=== PATIENT | female | born 1960 | race Caucasian/White ===

== ENCOUNTER 2018-07-06 16:29 | Inpatient (IN) | END 2018-07-19 19:30 | DRG 56 ==

== ENCOUNTER 2019-04-08 03:59 | Inpatient (IN) | payer BC ==
[~2019-04-08] VITALS: Ht 154.9 cm; Wt 118.5 kg
[~2019-04-08 03:59] MED LIST: ACET500C5 PO; ALBU8.5H8 INH; ASPI325T30 PO; ATOR40TA68 PO; BACL20TA PO; DOCU-144 PO; ENOX40DI2 SC; FLUT12HF4 IH; GLIP5TAB13 PO; GLU5XL PO; HYDR-3670 PO; HYDR-3671 PO; HYDR4TAB PO; LABE200T25 PO; LOSA100T3 PO; LYR75 PO; NIFE60TA18 PO; NITR100C6 PO; NST15PW TOP; PANT40TA3 PO; PARO12.53 PO; POLY17PO6 PO; PREG50CA PO; PSYL1CAP5 PO; SITA1TBM7 PO; SOLI10TA2 PO; SPIR25TA PO; VALA500T PO
--- NOTE | 2019-04-08 04:45 | ERD ---
ER Documentation Chief Complaint Chief Complaint CHEST PAIN, RT ARM PAIN FROM FALL. HPI This is a 59-year-old woman here with multiple complaints including right lateral thigh pain due to iliotibial band syndrome, right wrist pain status post fall yesterday, and complaints of chronic body pain and chest pain. She is here requesting opioid analgesics but also wants to be admitted for physical rehabilitation services. She states she was admitted to [facility] physical rehabilitation a few months ago and it really helped her and because of her deteriorating condition at home she feels she will benefit from rehab services. She states she has been using hydromorphone at home without relief of her pain. She denies fevers or chills, no head or neck injury, no complaints of paresis or paresthesias. ROS All systems reviewed and are negative except as per history of present illness. Allergies Allergies: Coded Allergies: tramadol (Verified Allergy, Severe, SEVERE HEADACHE, 04/08/19) cephalexin (Verified Allergy, Intermediate, 04/08/19) erythromycin base (Verified Allergy, Intermediate, 04/08/19) PMhx/Soc Chronic neuropathic pain, right iliotibial band syndrome, chronic pain syndrome, history of CVA with left-sided paresis, hyperlipidemia, diabetes mellitus type 2, obstructive sleep apnea, depression, CAD with history of [place], asthma, hypertension, obesity, chronic headaches History of Surgery: Yes (see PT note) Anesthesia Reaction: No Hx Neurological Disorder: Yes (CVA) Hx Respiratory Disorders: Yes (asthma; obstructive sleep apnea) Hx Cardiac Disorders: Yes (HTN; CAD; Hyperlipdemia; ) Hx Psychiatric Problems: Yes (depression) Hx Miscellaneous Medical Probl: No Hx Alcohol Use: No Hx Substance Use: No Hx Tobacco Use: No FmHx Family History: No diabetes Physical Exam Vitals Vital Signs Date Temp Pulse Resp B/P (MAP) Pulse Ox O2 O2 Flow FiO2 Time Delivery Rate 04/08/19 83 17 158/71 95 Room Air 04:45 (100) 04/08/19 98.9 77 16 173/69 98 04:15 (103) Physical Exam Const: Well-developed well-nourished woman, Dehydrated, nontoxic in appearance, afebrile well-developed well-nourished woman, debilitated appearing Resp: Poor breath sounds bilaterally Cardio: Regular rate and rhythm, no murmurs Skin: No petechiae or rashes. There is soft tissue contusion and ecchymosis to the right proximal palm and dorsal right wrist but no bony tenderness or deformity, no lacerations no target lesions Ext: No cyanosis, 2+ pitting edema in the lower extremities bilaterally, calves are symmetrical, distal pulses equal bilateral Neur: Awake and alert x3, no focal deficits or facial asymmetry, pupils equal round reactive to light Psych: Normal Mood and Affect Result Diagram: 04/08/19 0531 Results 24 hrs Laboratory Tests Test 04/08/19 05:31 White Blood Count 13.5 10^3/ul Red Blood Count 3.85 10^6/ul Hemoglobin 10.5 g/dl Hematocrit 33.0 % Mean Corpuscular Volume 85.7 fl Mean Corpuscular Hemoglobin 27.3 pg Mean Corpuscular Hemoglobin Concent 31.8 g/dl Red Cell Distribution Width 13.0 % Platelet Count 375 10^3/UL Mean Platelet Volume 9.3 fl Immature Granulocytes % 0.400 % Neutrophils % 73.7 % Lymphocytes % 14.7 % Monocytes % 9.3 % Eosinophils % 1.5 % Basophils % 0.4 % Nucleated Red Blood Cells % 0.0 /100WBC Immature Granulocytes # 0.050 10^3/ul Neutrophils # 10.0 10^3/ul Lymphocytes # 2.0 10^3/ul Monocytes # 1.3 10^3/ul Eosinophils # 0.2 10^3/ul Basophils # 0.1 10^3/ul Nucleated Red Blood Cells # 0.0 10^3/ul Current Medications Medications Dose Sig/Vlad Start Time Status Last (Trade) Ordered Route PRN Stop Time Admin Dose Reason Admin Ketorolac 30 mg ONCE STAT 04/08/19 DC 04/08/19 Tromethamine IM 04:52 05:09 (Toradol) 04/08/19 04:53 Sodium 500 ml @ Q1H STAT 04/08/19 04/08/19 Chloride 500 mls/hr IV 05:10 05:37 04/08/19 06:09 Procedures/MDM IV line was established patient was placed on property assessment monitor rhythm strip revealed a sinus rhythm at about 70 bpm with upright P and T waves. Patient was afebrile X-ray right wrist 3V Interpreted by me: Scaphoid: Normal Bones: No fracture Joints: No dislocation Foreign body: None One AP view of the chest performed, read by me reveals no acute infiltrates, normal mediastinum, sharp costophrenic and cardiac borders, no air under the diaphragm. Otherwise unremarkable chest x-ray. EKG performed, read by me: 74 bpm, normal sinus rhythm, normal axis, no acute ST segment changes, narrow QRS complex, with good R-wave progression in precordial leads. I administered 500 cc normal saline IV and Toradol 30 mg IM x1 CBC was unremarkable, other labs are pending I will follow-up. I spoke to Dr. Franklin regarding the patient's presentation and symptomatology, he kindly agreed to admit the patient for continued pain control and possible rehab services. Departure Diagnosis: Primary Impression: Intractable pain Additional Impressions: Acute dehydration Wrist sprain Encounter type: initial encounter Laterality: right Qualified Codes: S 63.501A - Unspecified sprain of right wrist, initial encounter Contusion of soft tissue Condition: AKILA Gilbert MD Apr 08, 2019 04:45
[2019-04-08] MEDS ORDERED: KETOROLAC 30 MG INJ IM STA (04:52)
[2019-04-08] MEDS ORDERED: SOD CHLORIDE 0.9% 500 ML IV STA (05:10)
[2019-04-08 08:00] VITALS: BP 122/74; PULSE 78; RESP 18
[2019-04-08 08:30] VITALS: BP 130/61
[2019-04-08 10:06] VITALS: Ht 154.9 cm; Wt 118.5 kg
[2019-04-08] MEDS: HYDROmorphONE 1 MG/ML SYG IV PRN ×3 (10:53→20:34)
[2019-04-08] MEDS ORDERED: DOCUSATE SODIUM 100 MG CAP PO PRN (11:30)
[2019-04-08] MEDS ORDERED: NACL 0.9% 3 ML SYG IV SCH (11:30)
[2019-04-08] MEDS: SOD CHLORIDE 0.45% 1,000 ML IV SCH (12:30)
[2019-04-08 15:00] VITALS: BP 142/65; PULSE 73; RESP 17
[2019-04-08] MEDS ORDERED: DEXTROSE 50% 50 ML SYRINGE IV PRN ×2 (17:30)
[2019-04-08] MEDS ORDERED: GLUCOSE GEL 15 GRAM TUBE BUCCAL PRN (17:30)
[2019-04-08] MEDS ORDERED: GLUCOSE GEL 15 GRAM TUBE PO PRN ×2 (17:30)
[2019-04-08] MEDS ORDERED: GLUCAGON 1 MG INJ IM PRN (17:30)
[2019-04-08] MEDS: INSULIN ASPART [NOVOLOG] 3 ML PEN SC SCH ×2 (17:50→22:26)
[2019-04-08 19:35] VITALS: BP 147/65; PULSE 70; RESP 17
[2019-04-08] MEDS ORDERED: ACETAMINOPHEN 500 MG TAB PO PRN (20:30)
[2019-04-08] MEDS: DOCUSATE SODIUM 100 MG CAP PO SCH (20:52)
[2019-04-08] MEDS: NIFEdipine (XL) 60 MG TAB PO SCH (20:55)
[2019-04-08] MEDS ORDERED: glipiZIDE 5 MG TAB PO SCH (21:00)
[2019-04-08] MEDS ORDERED: PREGABALIN 75 MG CAP PO SCH (21:00)
[2019-04-08] MEDS: ATORVASTATIN 40 MG TAB PO SCH (21:23)
[2019-04-08] MEDS: BACLOFEN 10 MG TAB PO SCH (21:23)
[2019-04-08] MEDS: ALBUTEROL HFA 8 GM INHALER INH SCH (22:37)
[2019-04-08] MEDS: LABETALOL 200 MG TAB PO SCH (23:04)
[2019-04-08 23:31] VITALS: PULSE 72
[2019-04-09] MEDS: HYDROmorphONE 1 MG/ML SYG IV PRN ×5 (00:28→17:37)
[2019-04-09 01:33] VITALS: BP 139/60; RESP 18
[2019-04-09] MEDS: SOD CHLORIDE 0.45% 1,000 ML IV SCH ×2 (01:37→13:44)
[2019-04-09] MEDS: ACCU-CHEK XX SCH (01:48)
--- NOTE | 2019-04-09 02:22 | HP ---
DATE OF ADMISSION: 04/08/2019 HISTORY OF PRESENT ILLNESS: The patient is a 59-year-old female with a past medical history of previ ous CVA, history of chronic pain syndrome, history of right iliotibial band syndrome, chronic neuropa thic pain, history of left-sided paresis, hyperlipidemia, diabetes type 2, obstructive sleep apnea, d epression, coronary artery, history of asthma, hypertension, obesity, and chronic headaches. The pat vashti presents from home after having a fall yesterday, unable to manage the amount of pain that she i s having. The patient has noted since her previous admission to the acute rehab, a progressive decli ne in her physical function. Unclear if she had further neurologic disease. The patient complains o f pain similar to her iliotibial band syndrome. The patient is being managed by an outpatient pain m anagement doctor for her chronic pain. No recent changes to any of her medications. Known to have l eukocytosis. X-rays were negative. PAST MEDICAL HISTORY: Significant for above. MEDICATIONS FROM HOME: Include: 1. Albuterol. 2. Baclofen. 3. Lipitor. 4. Hydralazine. 5. Labetalol. 6. Losartan. 7. Nifedipine. 8. Aldactone. 9. Tylenol. 10. Dilaudid. 11. Lyrica. 12. Advair HFA. 13. Colace. 14. Protonix. 15. Psyllium. 16. Glipizide. 17. Janumet. 18. VESIcare. ALLERGIES: 1. KEFLEX. 2. ERYTHROMYCIN-BASED. 3. TRAMADOL. SOCIAL HISTORY: Does not smoke, drink or use IV drugs. FAMILY HISTORY: History of kidney disease. REVIEW OF SYSTEMS: A 14-point review of systems attempted and negative. PHYSICAL EXAMINATION: VITAL SIGNS: We see temperature 99, blood pressure 147/65. HEENT: Normocephalic, atraumatic. Pupils equal, round, and reactive to light. Oropharynx shows vangie st mucous membranes. NECK: Supple. HEART: Regular rate and rhythm. LUNGS: Clear to auscultation. ABDOMEN: Soft, nontender, and nondistended. Normoactive bowel sounds. EXTREMITIES: No clubbing, cyanosis, or edema. SKIN: Shows no rashes. BACK: Some point tenderness. HIP: Shows tenderness around the right thigh. IMPRESSION: 1. Acute exacerbation of the iliotibial band syndrome, status post fall; pain out of proportion, but the patient suffers from multiple different pain pathologies, previously well-managed by pain manage ment doctor when she was here in this hospital by Dr. Faye in the ARU. We will recommend physical therapy. Neurology consult. ARU evaluation, may need to go back to outpatient pain management if d oes not qualify. 2. Anemia. 3. Status post fall with contusion. Will x-ray hips. 4. Progressive decline in function. Rule out other CVA, will check a CT of the head. 5. Frequent falls, doubt syncopal. May benefit from more aggressive physical therapy. Look for und erlying cause. 6. History of asthma. Continue Advair and nebulizers p.r.n. 7. Diabetes. Continue regular medications. 8. Hypertension. Continue regular medications. Monitor labs. 9. History of previous cerebrovascular accident. Medication optimized. 10. Goals and values discussed extensively with the patient and wishes to be FULL CODE. Dictated By: RAQUEL SULTANA/[place] Conf#: [id number] DID#: [id number]
[2019-04-09 08:24] VITALS: BP 146/65; PULSE 69; RESP 16
[2019-04-09] MEDS: INSULIN ASPART [NOVOLOG] 3 ML PEN SC SCH ×4 (08:37→21:14)
[2019-04-09] MEDS: ENOXAPARIN 40 MG/0.4 ML SYG SC SCH (08:38)
[2019-04-09] MEDS: PANTOPRAZOLE (EC) 40 MG TAB PO SCH (08:40)
[2019-04-09] MEDS: SPIRONOLACTONE 25 MG TAB PO SCH (08:40)
[2019-04-09] MEDS: metFORMIN 500 MG TAB PO SCH ×2 (08:40→17:37)
[2019-04-09] MEDS: ASPIRIN 81 MG TAB PO SCH (08:41)
[2019-04-09] MEDS: LABETALOL 200 MG TAB PO SCH ×3 (08:41→21:04)
[2019-04-09] MEDS: BACLOFEN 10 MG TAB PO SCH ×3 (08:41→21:05)
[2019-04-09] MEDS: LINAGLIPTIN 5 MG TABLET PO SCH (08:42)
[2019-04-09] MEDS: DOCUSATE SODIUM 100 MG CAP PO SCH ×2 (08:42→21:05)
[2019-04-09] MEDS: LOSARTAN 50 MG TAB PO SCH (08:42)
[2019-04-09] MEDS: ALBUTEROL HFA 8 GM INHALER INH SCH ×3 (08:42→21:02)
[2019-04-09] MEDS: NIFEdipine (XL) 60 MG TAB PO SCH ×2 (08:43→21:04)
[2019-04-09] MEDS ORDERED: PREGABALIN 50 MG CAP PO SCH (09:00)
[2019-04-09] MEDS: SOLIFENACIN 5 MG TAB PO SCH (09:00)
[2019-04-09] MEDS ORDERED: PREGABALIN 25 MG CAP PO SCH (09:00)
--- NOTE | 2019-04-09 10:43 | CONSI ---
Assessment/Plan Assessment/Plan Assessment/Plan (Recall) 59 F c/ Hx of stroke and other comorbidities, who presents for evaluation of scattered pains s/p recurrent fall. Labs suggest a UTI, which could certainly predispose to an unsteady gait.. She notably has diffuse and chronic pain...requiring daily dilaudid, lyrica, etc. There is perhaps a superimposed acute post-traumatic component; this should wang with time. Regarding her chronic headache syndrome in particular, she may be a candidate for Topamax prophylaxis given its migrainous quality...but wants to consider the option more in advance of its initiation.. P: Consider the addition of an NSAID in the short term, as medically able UTI and other medical management per primary PT/OT as tolerated Consider Topamax in the future for headache prophylaxis, should patient agree Will follow Consultation Date/Type/Reason Admit Date/Time Apr 08, 2019 at 05:32 Type of Consult Neurology Reason for Consultation pain s/p fall Requesting Provider: RAQUEL DOWNING MD Date/Time of Note DATE: 04/09/19 TIME: 10:42 Hx of Present Illness The patient is a 59-year-old female with a past medical history of previous CVA, history of chronic pain syndrome, history of right iliotibial band syndrome, chronic neuropathic pain, history of left-sided paresis, hyperlipidemia, diabetes type 2, obstructive sleep apnea, depression, coronary artery, history of asthma, hypertension, obesity, and chronic headaches. The patient presents from home after having a fall yesterday, unable to manage the amount of pain that she is having. The patient has noted since her previous admission to the acute rehab, a progressive decline in her physical function. Unclear if she had further neurologic disease. The patient complains of pain similar to her iliotibial band syndrome. The patient is being managed by an outpatient pain management doctor for her chronic pain. No recent changes to any of her medications. Known to have leukocytosis. X-rays were negative. per HPI Objective Exam Vitals Vital Signs Date Temp Pulse Resp B/P (MAP) Pulse Ox O2 O2 Flow FiO2 Time Delivery Rate 04/09/19 98.7 69 16 146/65 93 08:24 (92) 04/08/19 30 23:31 04/08/19 Room Air 08:00 Intake and Output 04/08/19 04/08/19 04/09/19 1515:00 23:00 07:00 IntakeIntake Total 932 ml 1626 ml OutputOutput Total 500 ml BalanceBalance 432 ml 1626 ml Exam PE: Gen Appearance: No Apparent Distress HEENT: Normocephalic Cardiovascular: Regular rate Abdomen: Soft, obese Extremities: Dry NE: The patient was alert and oriented. Language was normal. Fund of knowledge was normal. Pupils were equal and reactive to light. There was no afferent pupillary defect. Visual estrada were normal. Funduscopic examination was limited. Extra-ocular movements were full. Ptosis was absent. There was no nystagmus. Facial sensation was normal. Face was symmetric with normal strength. Hearing was intact. Palate movements were normal. Neck strength was normal. There was normal tongue bulk and speed of movement. Tone was increased on the left. Muscle bulk was normal. I did not see fasciculations. Left arm and leg were moderate to severely weak. Vibration sensation was reduced distally. Temperature and pinprick sensation was normal. Rapid alternating movements were normal. There was no dysmetria. There was no intention tremor. Gait was deferred due to bedrest. Arm and leg reflexes were brisk on the left. Cruz's sign was absent. Plantar responses were flexor. Results Result Diagram: 04/09/1952504/09/19525 Results 24hrs Laboratory Tests Test 04/08/19 16:20 04/08/19 17:45 04/08/19 20:40 04/08/19 22:24 Urine Color YELLOW Urine Clarity CLOUDY A Urine pH 5.0 Urine Specific 1.011 [place] Urine Ketones NEGATIVE Urine Nitrite NEGATIVE Urine Bilirubin NEGATIVE Urine Urobilinogen NEGATIVE Urine Leukocyte 2+ H Esterase Urine Microscopic 1 RBC Urine Microscopic 65 H WBC Urine Squamous FEW Epithelial Cells Urine Bacteria MANY A Urine Mucus FEW A Urine Hemoglobin NEGATIVE Urine Glucose NEGATIVE Urine Total Protein NEGATIVE Bedside Glucose 204 198 190 Test 04/09/19 01:36 04/09/19 05:26 04/09/19 08:34 Bedside Glucose 144 160 White Blood Count 7.9 # Red Blood Count 3.83 L Hemoglobin 10.2 L Hematocrit 32.4 L Mean Corpuscular 84.6 Volume Mean Corpuscular 26.6 L Hemoglobin Mean Corpuscular 31.5 L Hemoglobin Concent Red Cell 13.1 Distribution Width Platelet Count 356 Mean Platelet Volume 9.8 Immature 0.300 Granulocytes % Neutrophils % 55.7 Lymphocytes % 31.0 Monocytes % 9.8 Eosinophils % 2.7 Basophils % 0.5 Nucleated Red Blood 0.0 Cells % Immature 0.020 Granulocytes # Neutrophils # 4.4 Lymphocytes # 2.4 Monocytes # 0.8 Eosinophils # 0.2 Basophils # 0.0 Nucleated Red Blood 0.0 Cells # Sodium Level 138 Potassium Level 4.4 Chloride Level 104 Carbon Dioxide Level 29 Anion Gap 5 Blood Urea Nitrogen 14 Creatinine 0.49 Est Glomerular > 60 Filtrat Rate mL/min Glucose Level 150 Hemoglobin A1c 10.8 H Calcium Level 9.2 Phosphorus Level 3.9 Magnesium Level 2.0 Total Bilirubin 0.9 Direct Bilirubin 0.00 Indirect Bilirubin 0.9 Aspartate Amino 23 Transf (AST/SGOT) Alanine 31 Aminotransferase (AL T/SGPT) Alkaline Phosphatase 103 Total Protein 6.4 Albumin 3.6 Globulin 2.80 Albumin/Globulin 1.28 Ratio Thyroid Stimulating 2.270 Hormone (TSH) Past Medical History reviewed Home Meds Reported Medications Sitagliptin Phos-Metformin Hcl (Janumet XR) 100-1,000 Mg Tbmp.24hr, 1 TAB PO WITH DINNER, #30 TAB 04/08/19 Psyllium Husk/Calcium Carb (Metamucil Plus Calcium Capsule) 1 Each Capsule, 2 EACH PO DAILY, CAP 04/08/19 Docusate Sodium* (Colace*) 100 Mg Capsule, 100 MG PO BID, #60 CAP 04/08/19 Aspirin* (Aspirin*) 325 Mg Tablet, 81 MG PO QID PRN for PAIN, TAB 04/08/19 Acetaminophen* (Tylophen*) 500 Mg Capsule, 650 MG PO Q6H PRN for PAIN LEVEL 1-3, TAB 04/08/19 Salmeterol Xinaf-Fluticasone* (Advair HFA*) 230/12 Aerosol Inhaler, 2 INH IH BID, #1 INHALER 04/08/19 Albuterol Sulfate* (Proair HFA*) 8.5 Gm Hfa.aer.ad, 2 PUFF INH TID, #1 INHALER 04/08/19 Hydromorphone Hcl* (Hydromorphone Hcl*) 4 Mg Tablet, 4 MG PO Q6 PRN for PAIN, TAB 04/08/19 Pregabalin* (Lyrica*) 75 Mg Capsule, 75 MG PO QHS, CAP 04/08/19 Pregabalin* (Lyrica*) 50 Mg Capsule, 50 MG PO DAILY, CAP 04/08/19 Baclofen* (Baclofen*) 20 Mg Tablet, 20 MG PO TID, TAB 04/08/19 Solifenacin* (Vesicare*) 10 Mg Tablet, 10 MG PO DAILY, TAB 04/08/19 Pantoprazole* (Protonix*) 40 Mg Tablet.dr, 40 MG PO DAILY, TAB 04/08/19 Atorvastatin* (Atorvastatin*) 40 Mg Tablet, 40 MG PO QHS, #30 TAB 04/08/19 Spironolactone* (Aldactone*) 25 Mg Tablet, 25 MG PO DAILY, #30 TAB 04/08/19 Labetalol Hcl* (Labetalol Hcl*) 200 Mg Tablet, 400 MG PO TID, TAB 04/08/19 Losartan Potassium* (Cozaar*) 100 Mg Tablet, 100 MG PO DAILY, #30 TAB 04/08/19 Hydralazine Hcl* (Hydralazine Hcl*) 10 Mg Tablet, 10 MG PO BID, #120 TAB 04/08/19 Nifedipine* (Nifedipine ER*) 60 Mg Tablet.sa, 60 MG PO BID, TAB.SA 04/08/19 Glipizide* (Glipizide*) 5 Mg Tablet, 25 MG PO BID, TAB 04/08/19 Medications Current Medications Hydromorphone HCl (Dilaudid) 4 mg Q4H PRN PO SEVERE PAIN LEVEL 7-10; Start 04/08/19 at 08:00 Hydromorphone HCl (Dilaudid) 1 mg Q4H PRN IV SEVERE PAIN LEVEL 7-10 Last administered on 04/09/19at 09:07; Admin Dose 1 MG; Start 04/08/19 at 08:00 Sodium Chloride 1,000 ml @ 75 mls/hr [id number] IV Last administered on 04/09/19at 01:37; Admin Dose 75 MLS/HR; Start 04/08/19 at 11:04 IV Flush (NS 3 ml) 3 ml PER PROTOCOL IV ; Start 04/08/19 at 11:30 Docusate Sodium (Colace) 100 mg Q12H PRN PO .CONSTIPATION; Start 04/08/19 at 11:30 Enoxaparin Sodium (Lovenox) 40 mg DAILY SC Last administered on 04/09/19at 08:38; Admin Dose 40 MG; Start 04/09/19 at 09:00 Diagnostic Test (Pha) (Accu-Chek) 1 ea 02 XX Last administered on 04/09/19at 01:48; Admin Dose 1 EA; Start 04/09/19 at 02:00 Insulin Aspart (Novolog Insulin Pen) NOVOLOG *MILD* ALGORITHM WITH MEALS BEDTIME SC Last administered on 04/09/19at 08:37; Admin Dose 1 UNIT; Start 04/08/19 at 18:00 Miscellaneous Information 1 ea NOTE XX ; Start 04/08/19 at 17:30 Glucose (Glutose) 15 gm Q15M PRN PO DECREASED GLUCOSE; Start 04/08/19 at 17:30 Glucose (Glutose) 22.5 gm Q15M PRN PO DECREASED GLUCOSE; Start 04/08/19 at 17:30 Dextrose (D50w Syringe) 25 ml Q15M PRN IV DECREASED GLUCOSE; Start 04/08/19 at 17:30 Dextrose (D50w Syringe) 50 ml Q15M PRN IV DECREASED GLUCOSE; Start 04/08/19 at 17:30 Glucagon (Glucagen) 1 mg Q15M PRN IM DECREASED GLUCOSE; Start 04/08/19 at 17:30 Glucose (Glutose) 15 gm Q15M PRN BUCCAL DECREASED GLUCOSE; Start 04/08/19 at 17:30 Acetaminophen (Tylenol Tab) 650 mg Q6H PRN PO PAIN LEVEL 1-3; Start 04/08/19 at 20:30 Albuterol (Ventolin Hfa) 2 puff TID INH Last administered on 04/09/19at 08:42; Admin Dose 2 PUFF; Start 04/08/19 at 21:00 Aspirin (Aspirin) 81 mg DAILY PO Last administered on 04/09/19at 08:41; Admin Do se 81 MG; Start 04/09/19 at 09:00 Atorvastatin Calcium (Lipitor) 40 mg QHS PO Last administered on 04/08/19at 21:23; Admin Dose 40 MG; Start 04/08/19 at 21:00 Baclofen (Lioresal) 20 mg TID PO Last administered on 04/09/19at 08:41; Admin Dose 20 MG; Start 04/08/19 at 21:00 Docusate Sodium (Colace) 100 mg BID PO Last administered on 04/09/19 08:42; Admin Dose 100 MG; Start 04/08/19 at 21:00 Hydralazine HCl (Apresoline) 10 mg BID PO Last administered on 04/09/19 08:41; Admin Dose 10 MG; Start 04/08/19 at 21:00 Labetalol HCl (Normodyne) 400 mg TID PO Last administered on 04/09/19 08:41; Admin Dose 400 MG; Start 04/08/19 at 21:00 Losartan Potassium (Cozaar) 100 mg DAILY PO Last administered on 04/09/19 08:42; Admin Dose 100 MG; Start 04/09/19 at 09:00 Nifedipine (Procardia Xl) 60 mg BID PO Last administered on 04/09/19 08:43; Admin Dose 60 MG; Start 04/08/19 at 21:00 Pantoprazole (Protonix Tab) 40 mg DAILY PO Last administered on 04/09/19 08:40; Admin Dose 40 MG; Start 04/09/19 at 09:00 Pregabalin (Lyrica) 75 mg QHS PO Last administered on 04/08/19 21:23; Admin Dose 75 MG; Start 04/08/19 at 21:00 Solifenacin (Vesicare) 10 mg DAILY PO ; Start 04/09/19 at 09:00 Spironolactone (Aldactone) 25 mg DAILY PO Last administered on 04/09/19 08:40; Admin Dose 25 MG; Start 04/09/19 at 09:00 Linagliptin (Tradjenta) 5 mg DAILY PO Last administered on 04/09/19 08:42; Admin Dose 5 MG; Start 04/09/19 at 09:00 Metformin HCl (Glucophage) 500 mg BID WITH MEALS PO Last administered on 04/09/19 08:40; Admin Dose 500 MG; Start 04/09/19 at 08:00 Pregabalin (Lyrica) 50 mg QAM PO Last administered on 04/09/19 08:42; Admin Dose 50 MG; Start 04/09/19 at 09:00 Allergies: Coded Allergies: tramadol (Verified Allergy, Severe, SEVERE HEADACHE, 04/08/19) cephalexin (Verified Allergy, Intermediate, 04/08/19) erythromycin base (Verified Allergy, Intermediate, 04/08/19) Past Surgical History Past Surgical Hx: other Social History Smoking Status: Former smoker LAURA VOGEL Apr 09, 2019 10:43
--- NOTE | 2019-04-09 12:13 | CONS ---
Consult Date/Type/Reason Admit Date/Time Apr 08, 2019 at 05:32 Initial Consult Date Requesting Provider: RAQUEL DOWNING MD Date/Time of Note DATE: 04/09/19 TIME: 11:58 Subjective 59-year-old female with a past medical history of previous CVA, history of chronic pain syndrome, history of right iliotibial band syndrome, chronic neuropathic pain, history of left-sided paresis, hyperlipidemia, diabetes type 2, obstructive sleep apnea, depression, coronary artery, history of asthma, hypertension, obesity, and chronic headaches. The patient presents from home after having a fall yesterday, unable to manage the amount of pain that she is having. The patient has noted since her previous admission to the acute rehab, a progressive decline in her physical function. Unclear if she had further neurologic disease. The patient complains of pain similar to her iliotibial ba nd syndrome. The patient is being managed by an outpatient pain management doctor for her chronic pain. No recent changes to any of her medications. Known to have leukocytosis. X-rays were negative. noted some encephalopathy possibly related to meds. notes anxiety. REVIEW OF SYSTEMS: A 14-point review of systems attempted and negative. PHYSICAL EXAMINATION: HEENT: Normocephalic, atraumatic. Pupils equal, round, and reactive to light. Oropharynx shows moist mucous membranes. NECK: Supple. HEART: Regular rate and rhythm. LUNGS: Clear to auscultation. ABDOMEN: Soft, nontender, and nondistended. Normoactive bowel sounds. EXTREMITIES: No clubbing, cyanosis, or edema. SKIN: Shows no rashes. BACK: Some point tenderness. HIP: Shows tenderness around the right thigh. Objective Vitals Vital Signs Date Temp Pulse Resp B/P (MAP) Pulse Ox O2 O2 Flow FiO2 Time Delivery Rate 04/09/19 98.7 69 16 146/65 93 08:24 (92) 04/08/19 30 23:31 04/08/19 Room Air 08:00 Intake and Output 04/08/19 04/08/19 04/09/19 1515:00 23:00 07:00 IntakeIntake Total 932 ml 1626 ml OutputOutput Total 500 ml BalanceBalance 432 ml 1626 ml Results/Medications Result Diagram: 04/09/1952504/09/19525 Results 24 hrs Laboratory Tests Test 04/08/19 16:20 04/08/19 17:45 04/08/19 20:40 04/08/19 22:24 Urine Color YELLOW Urine Clarity CLOUDY A Urine pH 5.0 Urine Specific 1.011 [place] Urine Ketones NEGATIVE Urine Nitrite NEGATIVE Urine Bilirubin NEGATIVE Urine Urobilinogen NEGATIVE Urine Leukocyte 2+ H Esterase Urine Microscopic 1 RBC Urine Microscopic 65 H WBC Urine Squamous FEW Epithelial Cells Urine Bacteria MANY A Urine Mucus FEW A Urine Hemoglobin NEGATIVE Urine Glucose NEGATIVE Urine Total Protein NEGATIVE Bedside Glucose 204 198 190 Test 04/09/19 01:36 04/09/19 05:26 04/09/19 08:34 Bedside Glucose 144 160 White Blood Count 7.9 # Red Blood Count 3.83 L Hemoglobin 10.2 L Hematocrit 32.4 L Mean Corpuscular 84.6 Volume Mean Corpuscular 26.6 L Hemoglobin Mean Corpuscular 31.5 L Hemoglobin Concent Red Cell 13.1 Distribution Width Platelet Count 356 Mean Platelet Volume 9.8 Immature 0.300 Granulocytes % Neutrophils % 55.7 Lymphocytes % 31.0 Monocytes % 9.8 Eosinophils % 2.7 Basophils % 0.5 Nucleated Red Blood 0.0 Cells % Immature 0.020 Granulocytes # Neutrophils # 4.4 Lymphocytes # 2.4 Monocytes # 0.8 Eosinophils # 0.2 Basophils # 0.0 Nucleated Red Blood 0.0 Cells # Sodium Level 138 Potassium Level 4.4 Chloride Level 104 Carbon Dioxide Level 29 Anion Gap 5 Blood Urea Nitrogen 14 Creatinine 0.49 Est Glomerular > 60 Filtrat Rate mL/min Glucose Level 150 Hemoglobin A1c 10.8 H Calcium Level 9.2 Phosphorus Level 3.9 Magnesium Level 2.0 Total Bilirubin 0.9 Direct Bilirubin 0.00 Indirect Bilirubin 0.9 Aspartate Amino 23 Transf (AST/SGOT) Alanine 31 Aminotransferase (AL T/SGPT) Alkaline Phosphatase 103 Total Protein 6.4 Albumin 3.6 Globulin 2.80 Albumin/Globulin 1.28 Ratio Thyroid Stimulating 2.270 Hormone (TSH) Home Meds Reported Medications Sitagliptin Phos-Metformin Hcl (Janumet XR) 100-1,000 Mg Tbmp.24hr, 1 TAB PO WITH DINNER, #30 TAB 04/08/19 Psyllium Husk/Calcium Carb (Metamucil Plus Calcium Capsule) 1 Each Capsule, 2 EACH PO DAILY, CAP 04/08/19 Docusate Sodium* (Colace*) 100 Mg Capsule, 100 MG PO BID, #60 CAP 04/08/19 Aspirin* (Aspirin*) 325 Mg Tablet, 81 MG PO QID PRN for PAIN, TAB 04/08/19 Acetaminophen* (Tylophen*) 500 Mg Capsule, 650 MG PO Q6H PRN for PAIN LEVEL 1-3, TAB 04/08/19 Salmeterol Xinaf-Fluticasone* (Advair HFA*) 230/12 Aerosol Inhaler, 2 INH IH BID, #1 INHALER 04/08/19 Albuterol Sulfate* (Proair HFA*) 8.5 Gm Hfa.aer.ad, 2 PUFF INH TID, #1 INHALER 04/08/19 Hydromorphone Hcl* (Hydromorphone Hcl*) 4 Mg Tablet, 4 MG PO Q6 PRN for PAIN, TAB 04/08/19 Pregabalin* (Lyrica*) 75 Mg Capsule, 75 MG PO QHS, CAP 04/08/19 Pregabalin* (Lyrica*) 50 Mg Capsule, 50 MG PO DAILY, CAP 04/08/19 Baclofen* (Baclofen*) 20 Mg Tablet, 20 MG PO TID, TAB 04/08/19 Solifenacin* (Vesicare*) 10 Mg Tablet, 10 MG PO DAILY, TAB 04/08/19 Pantoprazole* (Protonix*) 40 Mg Tablet.dr, 40 MG PO DAILY, TAB 04/08/19 Atorvastatin* (Atorvastatin*) 40 Mg Tablet, 40 MG PO QHS, #30 TAB 04/08/19 Spironolactone* (Aldactone*) 25 Mg Tablet, 25 MG PO DAILY, #30 TAB 04/08/19 Labetalol Hcl* (Labetalol Hcl*) 200 Mg Tablet, 400 MG PO TID, TAB 04/08/19 Losartan Potassium* (Cozaar*) 100 Mg Tablet, 100 MG PO DAILY, #30 TAB 04/08/19 Hydralazine Hcl* (Hydralazine Hcl*) 10 Mg Tablet, 10 MG PO BID, #120 TAB 04/08/19 Nifedipine* (Nifedipine ER*) 60 Mg Tablet.sa, 60 MG PO BID, TAB.SA 04/08/19 Glipizide* (Glipizide*) 5 Mg Tablet, 25 MG PO BID, TAB 04/08/19 Medications Current Medications Hydromorphone HCl (Dilaudid) 4 mg Q4H PRN PO SEVERE PAIN LEVEL 7-10; Start 04/08/19 at 08:00 Hydromorphone HCl (Dilaudid) 1 mg Q4H PRN IV SEVERE PAIN LEVEL 7-10 Last administered on 04/09/19at 09:07; Admin Dose 1 MG; Start 04/08/19 at 08:00 Sodium Chloride 1,000 ml @ 75 mls/hr [id number] IV Last administered on 04/09/19at 01:37; Admin Dose 75 MLS/HR; Start 04/08/19 at 11:04 IV Flush (NS 3 ml) 3 ml PER PROTOCOL IV ; Start 04/08/19 at 11:30 Docusate Sodium (Colace) 100 mg Q12H PRN PO .CONSTIPATION; Start 04/08/19 at 11:30 Enoxaparin Sodium (Lovenox) 40 mg DAILY SC Last administered on 04/09/19at 08:38; Admin Dose 40 MG; Start 04/09/19 at 09:00 Diagnostic Test (Pha) (Accu-Chek) 1 ea 02 XX Last administered on 04/09/19at 01:48; Admin Dose 1 EA; Start 04/09/19 at 02:00 Insulin Aspart (Novolog Insulin Pen) NOVOLOG *MILD* ALGORITHM WITH MEALS BEDTIME SC Last administered on 04/09/19at 08:37; Admin Dose 1 UNIT; Start 04/08/19 at 18:00 Miscellaneous Information 1 ea NOTE XX ; Start 04/08/19 at 17:30 Glucose (Glutose) 15 gm Q15M PRN PO DECREASED GLUCOSE; Start 04/08/19 at 17:30 Glucose (Glutose) 22.5 gm Q15M PRN PO DECREASED GLUCOSE; Start 04/08/19 at 17:30 Dextrose (D50w Syringe) 25 ml Q15M PRN IV DECREASED GLUCOSE; Start 04/08/19 at 17:30 Dextrose (D50w Syringe) 50 ml Q15M PRN IV DECREASED GLUCOSE; Start 04/08/19 at 17:30 Glucagon (Glucagen) 1 mg Q15M PRN IM DECREASED GLUCOSE; Start 04/08/19 at 17:30 Glucose (Glutose) 15 gm Q15M PRN BUCCAL DECREASED GLUCOSE; Start 04/08/19 at 17:30 Acetaminophen (Tylenol Tab) 650 mg Q6H PRN PO PAIN LEVEL 1-3; Start 04/08/19 at 20:30 Albuterol (Ventolin Hfa) 2 puff TID INH Last administered on 04/09/19 08:42; Admin Dose 2 PUFF; Start 04/08/19 at 21:00 Aspirin (Aspirin) 81 mg DAILY PO Last administered on 04/09/19 08:41; Admin Dose 81 MG; Start 04/09/19 at 09:00 Atorvastatin Calcium (Lipitor) 40 mg QHS PO Last administered on 04/08/19 21:23; Admin Dose 40 MG; Start 04/08/19 at 21:00 Baclofen (Lioresal) 20 mg TID PO Last administered on 04/09/19 08:41; Admin Dose 20 MG; Start 04/08/19 at 21:00 Docusate Sodium (Colace) 100 mg BID PO Last administered on 04/09/19 08:42; Admin Dose 100 MG; Start 04/08/19 at 21:00 Hydralazine HCl (Apresoline) 10 mg BID PO Last administered on 04/09/19 08:41; Admin Dose 10 MG; Start 04/08/19 at 21:00 Labetalol HCl (Normodyne) 400 mg TID PO Last administered on 04/09/19 08:41; Admin Dose 400 MG; Start 04/08/19 at 21:00 Losartan Potassium (Cozaar) 100 mg DAILY PO Last administered on 04/09/19 08:42; Admin Dose 100 MG; Start 04/09/19 at 09:00 Nifedipine (Procardia Xl) 60 mg BID PO Last administered on 04/09/19 08:43; Admin Dose 60 MG; Start 04/08/19 at 21:00 Pantoprazole (Protonix Tab) 40 mg DAILY PO Last administered on 04/09/19 08:40; Admin Dose 40 MG; Start 04/09/19 at 09:00 Pregabalin (Lyrica) 75 mg QHS PO Last administered on 04/08/19 21:23; Admin Dose 75 MG; Start 04/08/19 at 21:00 Solifenacin (Vesicare) 10 mg DAILY PO ; Start 04/09/19 at 09:00 Spironolactone (Aldactone) 25 mg DAILY PO Last administered on 04/09/19 08:40; Admin Dose 25 MG; Start 04/09/19 at 09:00 Linagliptin (Tradjenta) 5 mg DAILY PO Last administered on 04/09/19 08:42; Admin Dose 5 MG; Start 04/09/19 at 09:00 Metformin HCl (Glucophage) 500 mg BID WITH MEALS PO Last administered on 04/09/19 08:40; Admin Dose 500 MG; Start 04/09/19 at 08:00 Pregabalin (Lyrica) 50 mg QAM PO Last administered on 04/09/19 08:42; Admin Dose 50 MG; Start 04/09/19 at 09:00 Assessment/Plan Hospital Course (Demo Recall) 1. Acute exacerbation of the iliotibial band syndrome, status post fall; pain out of proportion, but the patient suffers from multiple different pain pathologies, previously well-managed by pain management doctor when she was here in this hospital by Dr. Faye in the ARU. We will recommend physical therapy. Neurology consult. ARU evaluation, may need to go back to outpatient pain management if does not qualify. 2. Anemia. 3. Status post fall with contusion. Will x-ray hips. 4. Progressive decline in function. Rule out other CVA, will check a CT of the head. neurology consultation 5. Frequent falls, doubt syncopal. May benefit from more aggressive physical therapy. Look for underlying cause. 6. History of asthma. Continue Advair and nebulizers p.r.n. 7. Diabetes. Continue regular medications. 8. Hypertension. Continue regular medications. Monitor labs. 9. History of previous cerebrovascular accident. Medication optimized. 10. encephalopathy- transient. may be toxic from meds. avoid sedatives. neuro consulted. fu ct head. RAQUEL DOWNING MD Apr 09, 2019 12:08
[2019-04-09 12:22] VITALS: BP 117/58; PULSE 67
[2019-04-09] MEDS ORDERED: FUROSEMIDE 40 MG INJ IV ONE (12:30)
[2019-04-09] MEDS: PREGABALIN 75 MG CAP PO SCH ×2 (12:42→21:05)
[2019-04-09] MEDS ORDERED: KETOROLAC 15 MG INJ IV STA (14:00)
[2019-04-09 14:22] VITALS: BP 120/56; PULSE 69; RESP 18
[2019-04-09 19:25] VITALS: BP 111/56; PULSE 63; RESP 16
[2019-04-09] MEDS: ATORVASTATIN 40 MG TAB PO SCH (21:04)
[2019-04-10] MEDS: HYDROmorphONE 1 MG/ML SYG IV PRN ×6 (00:47→23:59)
[2019-04-10 01:02] VITALS: BP 131/63; PULSE 67; RESP 16
[2019-04-10] MEDS: ACCU-CHEK XX SCH (02:00)
[2019-04-10 07:59] VITALS: BP 146/65; PULSE 70; RESP 18
[2019-04-10] MEDS: SOLIFENACIN 5 MG TAB PO SCH (08:12)
[2019-04-10] MEDS: LABETALOL 200 MG TAB PO SCH ×3 (08:13→21:11)
[2019-04-10] MEDS: metFORMIN 500 MG TAB PO SCH ×2 (08:13→17:57)
[2019-04-10] MEDS: PREGABALIN 75 MG CAP PO SCH ×3 (08:13→21:12)
[2019-04-10] MEDS: DOCUSATE SODIUM 100 MG CAP PO SCH ×2 (08:14→21:12)
[2019-04-10] MEDS: ASPIRIN 81 MG TAB PO SCH (08:14)
[2019-04-10] MEDS: SPIRONOLACTONE 25 MG TAB PO SCH (08:14)
[2019-04-10] MEDS: NIFEdipine (XL) 60 MG TAB PO SCH (08:14)
[2019-04-10] MEDS: LINAGLIPTIN 5 MG TABLET PO SCH (08:14)
[2019-04-10] MEDS: LOSARTAN 50 MG TAB PO SCH (08:14)
[2019-04-10] MEDS: BACLOFEN 10 MG TAB PO SCH ×4 (08:14→21:10)
[2019-04-10] MEDS: PANTOPRAZOLE (EC) 40 MG TAB PO SCH (08:15)
[2019-04-10] MEDS: ALBUTEROL HFA 8 GM INHALER INH SCH ×3 (08:15→21:10)
[2019-04-10] MEDS: INSULIN ASPART [NOVOLOG] 3 ML PEN SC SCH ×4 (08:16→21:00)
[2019-04-10] MEDS: ENOXAPARIN 40 MG/0.4 ML SYG SC SCH (08:17)
--- NOTE | 2019-04-10 09:57 | CONS ---
Consult Date/Type/Reason Admit Date/Time Apr 08, 2019 at 05:32 Initial Consult Date Requesting Provider: RAQUEL DOWNING MD Date/Time of Note DATE: 04/10/19 TIME: 09:54 Subjective 59-year-old female with a past medical history of previous CVA, history of chronic pain syndrome, history of right iliotibial band syndrome, chronic neuropathic pain, history of left-sided paresis, hyperlipidemia, diabetes type 2, obstructive sleep apnea, depression, coronary artery, history of asthma, hypertension, obesity, and chronic headaches. The patient presents from home after having a fall yesterday, unable to manage the amount of pain that she is having. The patient has noted since her previous admission to the acute rehab, a progressive decline in her physical function. Unclear if she had further neurologic disease. The patient complains of pain similar to her iliotibial ba nd syndrome. The patient is being managed by an outpatient pain management doctor for her chronic pain. No recent changes to any of her medications. Known to have leukocytosis. X-rays were negative. noted some encephalopathy possibly related to meds and poss uti notes anxiety. REVIEW OF SYSTEMS: A 14-point review of systems attempted and negative. PHYSICAL EXAMINATION: HEENT: Normocephalic, atraumatic. Pupils equal, round, and reactive to light. Oropharynx shows moist mucous membranes. NECK: Supple. HEART: Regular rate and rhythm. LUNGS: Clear to auscultation. ABDOMEN: Soft, nontender, and nondistended. Normoactive bowel sounds. EXTREMITIES: No clubbing, cyanosis, or edema. SKIN: Shows no rashes. BACK: Some point tenderness. HIP: Shows tenderness around the right thigh. Objective Vitals Vital Signs Date Temp Pulse Resp B/P (MAP) Pulse Ox O2 O2 Flow FiO2 Time Delivery Rate 04/10/19 98.5 70 18 146/65 95 07:59 (92) 04/08/19 30 23:31 04/08/19 Room Air 08:00 Intake and Output 04/09/19 04/09/19 04/10/19 1515:00 23:00 07:00 IntakeIntake Total 1878 ml 288 ml 358 ml BalanceBalance 1878 ml 288 ml 358 ml Results/Medications Result Diagram: 04/09/19 0504/09/19525 Results 24 hrs Laboratory Tests Test 04/09/19 12:24 04/09/19 17:37 04/09/19 21:00 04/10/19 02:33 Bedside Glucose 161 178 184 157 Test 04/10/19 08:10 Bedside Glucose 149 Home Meds Reported Medications Sitagliptin Phos-Metformin Hcl (Janumet XR) 100-1,000 Mg Tbmp.24hr, 1 TAB PO WITH DINNER, #30 TAB 04/08/19 Psyllium Husk/Calcium Carb (Metamucil Plus Calcium Capsule) 1 Each Capsule, 2 EACH PO DAILY, CAP 04/08/19 Docusate Sodium* (Colace*) 100 Mg Capsule, 100 MG PO BID, #60 CAP 04/08/19 Aspirin* (Aspirin*) 325 Mg Tablet, 81 MG PO QID PRN for PAIN, TAB 04/08/19 Acetaminophen* (Tylophen*) 500 Mg Capsule, 650 MG PO Q6H PRN for PAIN LEVEL 1-3, TAB 04/08/19 Salmeterol Xinaf-Fluticasone* (Advair HFA*) 230/12 Aerosol Inhaler, 2 INH IH BID, #1 INHALER 04/08/19 Albuterol Sulfate* (Proair HFA*) 8.5 Gm Hfa.aer.ad, 2 PUFF INH TID, #1 INHALER 04/08/19 Hydromorphone Hcl* (Hydromorphone Hcl*) 4 Mg Tablet, 4 MG PO Q6 PRN for PAIN, TAB 04/08/19 Pregabalin* (Lyrica*) 75 Mg Capsule, 75 MG PO QHS, CAP 04/08/19 Pregabalin* (Lyrica*) 50 Mg Capsule, 50 MG PO DAILY, CAP 04/08/19 Baclofen* (Baclofen*) 20 Mg Tablet, 20 MG PO TID, TAB 04/08/19 Solifenacin* (Vesicare*) 10 Mg Tablet, 10 MG PO DAILY, TAB 04/08/19 Pantoprazole* (Protonix*) 40 Mg Tablet.dr, 40 MG PO DAILY, TAB 04/08/19 Atorvastatin* (Atorvastatin*) 40 Mg Tablet, 40 MG PO QHS, #30 TAB 04/08/19 Spironolactone* (Aldactone*) 25 Mg Tablet, 25 MG PO DAILY, #30 TAB 04/08/19 Labetalol Hcl* (Labetalol Hcl*) 200 Mg Tablet, 400 MG PO TID, TAB 04/08/19 Losartan Potassium* (Cozaar*) 100 Mg Tablet, 100 MG PO DAILY, #30 TAB 04/08/19 Hydralazine Hcl* (Hydralazine Hcl*) 10 Mg Tablet, 10 MG PO BID, #120 TAB 04/08/19 Nifedipine* (Nifedipine ER*) 60 Mg Tablet.sa, 60 MG PO BID, TAB.SA 04/08/19 Glipizide* (Glipizide*) 5 Mg Tablet, 25 MG PO BID, TAB 04/08/19 Medications Current Medications Hydromorphone HCl (Dilaudid) 4 mg Q4H PRN PO SEVERE PAIN LEVEL 7-10; Start 04/08/19 at 08:00 Hydromorphone HCl (Dilaudid) 1 mg Q4H PRN IV SEVERE PAIN LEVEL 7-10 Last administered on 04/10/19at 09:45; Admin Dose 1 MG; Start 04/08/19 at 08:00 IV Flush (NS 3 ml) 3 ml PER PROTOCOL IV ; Start 04/08/19 at 11:30 Docusate Sodium (Colace) 100 mg Q12H PRN PO .CONSTIPATION; Start 04/08/19 at 11:30 Enoxaparin Sodium (Lovenox) 40 mg DAILY SC Last administered on 04/10/19at 08:17; Admin Dose 40 MG; Start 04/09/19 at 09:00 Diagnostic Test (Pha) (Accu-Chek) 1 ea 02 XX Last administered on 04/09/19at 01:48; Admin Dose 1 EA; Start 04/09/19 at 02:00 Insulin Aspart (Novolog Insulin Pen) NOVOLOG *MILD* ALGORITHM WITH MEALS BEDT [place] SC Last administered on 04/10/19at 08:16; Admin Dose 1 UNIT; Start 04/08/19 at 18:00 Miscellaneous Information 1 ea NOTE XX ; Start 04/08/19 at 17:30 Glucose (Glutose) 15 gm Q15M PRN PO DECREASED GLUCOSE; Start 04/08/19 at 17:30 Glucose (Glutose) 22.5 gm Q15M PRN PO DECREASED GLUCOSE; Start 04/08/19 at 17:30 Dextrose (D50w Syringe) 25 ml Q15M PRN IV DECREASED GLUCOSE; Start 04/08/19 at 17:30 Dextrose (D50w Syringe) 50 ml Q15M PRN IV DECREASED GLUCOSE; Start 04/08/19 at 17:30 Glucagon (Glucagen) 1 mg Q15M PRN IM DECREASED GLUCOSE; Start 04/08/19 at 17:30 Glucose (Glutose) 15 gm Q15M PRN BUCCAL DECREASED GLUCOSE; Start 04/08/19 at 17:30 Acetaminophen (Tylenol Tab) 650 mg Q6H PRN PO PAIN LEVEL 1-3 Last administered on 04/10/19 02:42; Admin Dose 650 MG; Start 04/08/19 at 20:30 Albuterol (Ventolin Hfa) 2 puff TID INH Last administered on 04/10/19 08:15; Admin Dose 2 PUFF; Start 04/08/19 at 21:00 Aspirin (Aspirin) 81 mg DAILY PO Last administered on 04/10/19 08:14; Admin Dose 81 MG; Start 04/09/19 at 09:00 Atorvastatin Calcium (Lipitor) 40 mg QHS PO Last administered on 04/09/19 21:04; Admin Dose 40 MG; Start 04/08/19 at 21:00 Baclofen (Lioresal) 20 mg TID PO Last administered on 04/10/19 08:14; Admin Dose 20 MG; Start 04/08/19 at 21:00 Docusate Sodium (Colace) 100 mg BID PO Last administered on 04/10/19 08:14; Admin Dose 100 MG; Start 04/08/19 at 21:00 Hydralazine HCl (Apresoline) 10 mg BID PO Last administered on 04/10/19 08:13; Admin Dose 10 MG; Start 04/08/19 at 21:00 Labetalol HCl (Normodyne) 400 mg TID PO Last administered on 04/10/19 08:13; Admin Dose 400 MG; Start 04/08/19 at 21:00 Losartan Potassium (Cozaar) 100 mg DAILY PO Last administered on 04/10/19 08:14; Admin Dose 100 MG; Start 04/09/19 at 09:00 Nifedipine (Procardia Xl) 60 mg BID PO Last administered on 04/10/19 08:14; Admin Dose 60 MG; Start 04/08/19 at 21:00 Pantoprazole (Protonix Tab) 40 mg DAILY PO Last administered on 04/10/19 08:15; Admin Dose 40 MG; Start 04/09/19 at 09:00 Solifenacin (Vesicare) 10 mg DAILY PO Last administered on 04/10/19 08:12; Admin Dose 10 MG; Start 04/09/19 at 09:00 Spironolactone (Aldactone) 25 mg DAILY PO Last administered on 04/10/19 08:14; Admin Dose 25 MG; Start 04/09/19 at 09:00 Linagliptin (Tradjenta) 5 mg DAILY PO Last administered on 04/10/19 08:14; Admin Dose 5 MG; Start 04/09/19 at 09:00 Metformin HCl (Glucophage) 500 mg BID WITH MEALS PO Last administered on 04/10/19 08:13; Admin Dose 500 MG; Start 04/09/19 at 08:00 Pregabalin (Lyrica) 75 mg TID PO Last administered on 04/10/19 08:13; Admin Dose 75 MG; Start 04/09/19 at 13:00 Assessment/Plan Hospital Course (Demo Recall) 1. Acute exacerbation of the iliotibial band syndrome, status post fall; pain out of proportion, but the patient suffers from multiple different pain pathologies, previously well-managed by pain management doctor when she was here in this hospital by Dr. Faye in the ARU. We will recommend physical therapy. Neurology consult. ARU evaluation, may need to go back to outpatient pain management if does not qualify. 2. Anemia. 3. Status post fall with contusion. Will x-ray hips. 4. Progressive decline in function. Rule out other CVA, will check a CT of the head. neurology consultation 5. Frequent falls, doubt syncopal. May benefit from more aggressive physical therapy. Look for underlying cause. 6. History of asthma. Continue Advair and nebulizers p.r.n. 7. Diabetes. Continue regular medications. 8. Hypertension. Continue regular medications. Monitor labs. 9. History of previous cerebrovascular accident. Medication optimized. 10. encephalopathy- transient. may be toxic from meds or uti. avoid sedatives. neuro consult appreciate. unchanged ct head.11. 11. uti- k pneumonia. pansensitive. start macrobid. FARAHMANDIAN,RAQUEL MD Apr 10, 2019 09:57
[2019-04-10] MEDS: ACETAMINOPHEN 325 MG TAB PO PRN (10:59)
[2019-04-10] MEDS: NITROFURANTOIN (SR) 100 MG CAP PO SCH ×2 (11:54→21:11)
[2019-04-10 11:56] VITALS: BP 117/56; PULSE 65
[2019-04-10] MEDS ORDERED: KETOROLAC 15 MG INJ IV ONE (13:30)
[2019-04-10 15:13] VITALS: BP 107/53; PULSE 61; RESP 18
[2019-04-10] MEDS ORDERED: glipiZIDE 5 MG TAB PO SCH (17:30)
[2019-04-10 20:33] VITALS: BP 139/64; PULSE 69; RESP 18
[2019-04-10] MEDS: ATORVASTATIN 40 MG TAB PO SCH (21:12)
[2019-04-10] MEDS: NIFEdipine (XL) 30 MG TAB PO SCH (21:12)
[2019-04-11 01:26] VITALS: BP 163/72; PULSE 68; RESP 18
[2019-04-11] MEDS: ACETAMINOPHEN 325 MG TAB PO PRN (01:41)
[2019-04-11 01:54] VITALS: BP 149/68; PULSE 70
[2019-04-11] MEDS: HYDROmorphONE 1 MG/ML SYG IV PRN ×4 (04:30→18:39)
[2019-04-11 07:31] VITALS: BP 158/69; PULSE 64; RESP 16
[2019-04-11] MEDS: INSULIN ASPART [NOVOLOG] 3 ML PEN SC SCH ×4 (08:00→20:52)
[2019-04-11] MEDS: POLYETHYLENE GLYCOL 17 GM PACKET PO SCH (08:50)
[2019-04-11] MEDS: metFORMIN 500 MG TAB PO SCH ×2 (08:50→18:10)
[2019-04-11] MEDS: BACLOFEN 10 MG TAB PO SCH ×3 (08:51→20:47)
[2019-04-11] MEDS: DOCUSATE SODIUM 100 MG CAP PO SCH ×2 (08:51→20:48)
[2019-04-11] MEDS: NITROFURANTOIN (SR) 100 MG CAP PO SCH ×2 (08:51→20:46)
[2019-04-11] MEDS: LABETALOL 200 MG TAB PO SCH ×3 (08:52→20:47)
[2019-04-11] MEDS: SOLIFENACIN 5 MG TAB PO SCH (08:52)
[2019-04-11] MEDS: PREGABALIN 75 MG CAP PO SCH ×3 (08:52→20:47)
[2019-04-11] MEDS: PANTOPRAZOLE (EC) 40 MG TAB PO SCH (08:53)
[2019-04-11] MEDS: LOSARTAN 50 MG TAB PO SCH (08:53)
[2019-04-11] MEDS: ASPIRIN 81 MG TAB PO SCH (08:53)
[2019-04-11] MEDS: SPIRONOLACTONE 25 MG TAB PO SCH (08:53)
[2019-04-11] MEDS: LINAGLIPTIN 5 MG TABLET PO SCH (08:53)
[2019-04-11] MEDS: NIFEdipine (XL) 30 MG TAB PO SCH ×2 (08:53→20:47)
[2019-04-11] MEDS: FUROSEMIDE 20 MG TAB PO SCH (08:54)
[2019-04-11] MEDS: ALBUTEROL HFA 8 GM INHALER INH SCH ×3 (08:54→20:45)
[2019-04-11] MEDS: ENOXAPARIN 40 MG/0.4 ML SYG SC SCH (08:57)
--- NOTE | 2019-04-11 10:20 | CONS ---
Consult Date/Type/Reason Admit Date/Time Apr 08, 2019 at 05:32 Initial Consult Date Requesting Provider: RAQUEL DOWNING MD Date/Time of Note DATE: 04/11/19 TIME: 10:16 Subjective 59-year-old female with a past medical history of previous CVA, history of chronic pain syndrome, history of right iliotibial band syndrome, chronic neuropathic pain, history of left-sided paresis, hyperlipidemia, diabetes type 2, obstructive sleep apnea, depression, coronary artery, history of asthma, hypertension, obesity, and chronic headaches. The patient presents from home after having a fall yesterday, unable to manage the amount of pain that she is having. The patient has noted since her previous admission to the acute rehab, a progressive decline in her physical function. Unclear if she had further neurologic disease. The patient complains of pain similar to her iliotibial ba nd syndrome. The patient is being managed by an outpatient pain management doctor for her chronic pain. No recent changes to any of her medications. Known to have leukocytosis. X-rays were negative. noted some encephalopathy possibly related to meds and poss uti notes anxiety. noted poss aphasia last night. REVIEW OF SYSTEMS: A 14-point review of systems attempted and negative. PHYSICAL EXAMINATION: HEENT: Normocephalic, atraumatic. Pupils equal, round, and reactive to light. Oropharynx shows moist mucous membranes. NECK: Supple. HEART: Regular rate and rhythm. LUNGS: Clear to auscultation. ABDOMEN: Soft, nontender, and nondistended. Normoactive bowel sounds. EXTREMITIES: No clubbing, cyanosis, or edema. SKIN: Shows no rashes. BACK: Some point tenderness. HIP: Shows tenderness around the right thigh. Objective Vitals Vital Signs Date Temp Pulse Resp B/P (MAP) Pulse Ox O2 O2 Flow FiO2 Time Delivery Rate 04/11/19 98.6 64 16 158/69 96 07:31 (98) 04/08/19 30 23:31 04/08/19 Room Air 08:00 Intake and Output 04/10/19 04/10/19 04/11/19 1515:00 23:00 07:00 IntakeIntake Total 680 ml 360 ml 958 ml OutputOutput Total 1 ml BalanceBalance 679 ml 360 ml 958 ml Results/Medications Result Diagram: 04/09/19 0526 04/09/19 0526 Results 24 hrs Laboratory Tests Test 04/10/19 12:44 04/10/19 17:53 04/10/19 21:03 04/11/19 08:28 Bedside Glucose 144 167 137 127 Home Meds Reported Medications Sitagliptin Phos-Metformin Hcl (Janumet XR) 100-1,000 Mg Tbmp.24hr, 1 TAB PO WITH DINNER, #30 TAB 04/08/19 Psyllium Husk/Calcium Carb (Metamucil Plus Calcium Capsule) 1 Each Capsule, 2 EACH PO DAILY, CAP 04/08/19 Docusate Sodium* (Colace*) 100 Mg Capsule, 100 MG PO BID, #60 CAP 04/08/19 Aspirin* (Aspirin*) 325 Mg Tablet, 81 MG PO QID PRN for PAIN, TAB 04/08/19 Acetaminophen* (Tylophen*) 500 Mg Capsule, 650 MG PO Q6H PRN for PAIN LEVEL 1-3, TAB 04/08/19 Salmeterol Xinaf-Fluticasone* (Advair HFA*) 230/12 Aerosol Inhaler, 2 INH IH BID, #1 INHALER 04/08/19 Albuterol Sulfate* (Proair HFA*) 8.5 Gm Hfa.aer.ad, 2 PUFF INH TID, #1 INHALER 04/08/19 Hydromorphone Hcl* (Hydromorphone Hcl*) 4 Mg Tablet, 4 MG PO Q6 PRN for PAIN, TAB 04/08/19 Pregabalin* (Lyrica*) 75 Mg Capsule, 75 MG PO QHS, CAP 04/08/19 Pregabalin* (Lyrica*) 50 Mg Capsule, 50 MG PO DAILY, CAP 04/08/19 Baclofen* (Baclofen*) 20 Mg Tablet, 20 MG PO TID, TAB 04/08/19 Solifenacin* (Vesicare*) 10 Mg Tablet, 10 MG PO DAILY, TAB 04/08/19 Pantoprazole* (Protonix*) 40 Mg Tablet.dr, 40 MG PO DAILY, TAB 04/08/19 Atorvastatin* (Atorvastatin*) 40 Mg Tablet, 40 MG PO QHS, #30 TAB 04/08/19 Spironolactone* (Aldactone*) 25 Mg Tablet, 25 MG PO DAILY, #30 TAB 04/08/19 Labetalol Hcl* (Labetalol Hcl*) 200 Mg Tablet, 400 MG PO TID, TAB 04/08/19 Losartan Potassium* (Cozaar*) 100 Mg Tablet, 100 MG PO DAILY, #30 TAB 04/08/19 Hydralazine Hcl* (Hydralazine Hcl*) 10 Mg Tablet, 10 MG PO BID, #120 TAB 04/08/19 Nifedipine* (Nifedipine ER*) 60 Mg Tablet.sa, 60 MG PO BID, TAB.SA 04/08/19 Glipizide* (Glipizide*) 5 Mg Tablet, 25 MG PO BID, TAB 04/08/19 Medications Current Medications Hydromorphone HCl (Dilaudid) 4 mg Q4H PRN PO SEVERE PAIN LEVEL 7-10; Start 04/08/19 at 08:00 Hydromorphone HCl (Dilaudid) 1 mg Q4H PRN IV SEVERE PAIN LEVEL 7-10 Last administered on 04/11/19at 08:58; Admin Dose 1 MG; Start 04/08/19 at 08:00 IV Flush (NS 3 ml) 3 ml PER PROTOCOL IV ; Start 04/08/19 at 11:30 Docusate Sodium (Colace) 100 mg Q12H PRN PO .CONSTIPATION; Start 04/08/19 at 11:30 Enoxaparin Sodium (Lovenox) 40 mg DAILY SC Last administered on 04/11/19at 08:57; Admin Dose 40 MG; Start 04/09/19 at 09:00 Diagnostic Test (Pha) (Accu-Chek) 1 ea 02 XX Last administered on 04/09/19at 01:48; Admin Dose 1 EA; Start 04/09/19 at 02:00 Insulin Aspart (Novolog Insulin Pen) NOVOLOG *MILD* ALGORITHM WITH MEALS BEDTIM E SC Last administered on 04/10/19at 17:56; Admin Dose 1 UNIT; Start 04/08/19 at 18:00 Miscellaneous Information 1 ea NOTE XX ; Start 04/08/19 at 17:30 Glucose (Glutose) 15 gm Q15M PRN PO DECREASED GLUCOSE; Start 04/08/19 at 17:30 Glucose (Glutose) 22.5 gm Q15M PRN PO DECREASED GLUCOSE; Start 04/08/19 at 17:30 Dextrose (D50w Syringe) 25 ml Q15M PRN IV DECREASED GLUCOSE; Start 04/08/19 at 17:30 Dextrose (D50w Syringe) 50 ml Q15M PRN IV DECREASED GLUCOSE; Start 04/08/19 at 17:30 Glucagon (Glucagen) 1 mg Q15M PRN IM DECREASED GLUCOSE; Start 04/08/19 at 17:30 Glucose (Glutose) 15 gm Q15M PRN BUCCAL DECREASED GLUCOSE; Start 04/08/19 at 17:30 Albuterol (Ventolin Hfa) 2 puff TID INH Last administered on 04/11/19 08:54; Admin Dose 2 PUFF; Start 04/08/19 at 21:00 Aspirin (Aspirin) 81 mg DAILY PO Last administered on 04/11/19 08:53; Admin Dose 81 MG; Start 04/09/19 at 09:00 Atorvastatin Calcium (Lipitor) 40 mg QHS PO Last administered on 04/10/19 21:12; Admin Dose 40 MG; Start 04/08/19 at 21:00 Baclofen (Lioresal) 20 mg TID PO Last administered on 04/11/19 08:51; Admin Dose 20 MG; Start 04/08/19 at 21:00 Docusate Sodium (Colace) 100 mg BID PO Last administered on 04/11/19 08:51; Admin Dose 100 MG; Start 04/08/19 at 21:00 Hydralazine HCl (Apresoline) 10 mg BID PO Last administered on 04/11/19 08:51; Admin Dose 10 MG; Start 04/08/19 at 21:00 Labetalol HCl (Normodyne) 400 mg TID PO Last administered on 04/11/19 08:52; Admin Dose 400 MG; Start 04/08/19 at 21:00 Losartan Potassium (Cozaar) 100 mg DAILY PO Last administered on 04/11/19 08:53; Admin Dose 100 MG; Start 04/09/19 at 09:00 Pantoprazole (Protonix Tab) 40 mg DAILY PO Last administered on 04/11/19 08:53; Admin Dose 40 MG; Start 04/09/19 at 09:00 Solifenacin (Vesicare) 10 mg DAILY PO Last administered on 04/11/19 08:52; Admin Dose 10 MG; Start 04/09/19 at 09:00 Spironolactone (Aldactone) 25 mg DAILY PO Last administered on 04/11/19 08:53; Admin Dose 25 MG; Start 04/09/19 at 09:00 Linagliptin (Tradjenta) 5 mg DAILY PO Last administered on 04/11/19 08:53; Admin Dose 5 MG; Start 04/09/19 at 09:00 Metformin HCl (Glucophage) 500 mg BID WITH MEALS PO Last administered on 04/11/19 08:50; Admin Dose 500 MG; Start 04/09/19 at 08:00 Pregabalin (Lyrica) 75 mg TID PO Last administered on 04/11/19 08:52; Admin Dose 75 MG; Start 04/09/19 at 13:00 Nitrofurantoin Macrocrystals (Macrobid) 100 mg BID PO Last administered on 04/11/19 08:51; Admin Dose 100 MG; Start 04/10/19 at 11:00 Nifedipine (Procardia Xl) 30 mg BID PO Last administered on 04/11/19 08:53; Admin Dose 30 MG; Start 04/10/19 at 21:00 Furosemide (Lasix) 20 mg DAILY PO Last administered on 04/11/19 08:54; Admin Dose 20 MG; Start 04/11/19 at 09:00 Acetaminophen (Tylenol Tab) 650 mg Q6H PRN PO MILD PAIN(1-3)OR ELEVATED TEMP Last administered on 04/11/19 01:41; Admin Dose 650 MG; Start 04/10/19 at 11:00 Polyethylene Glycol (Miralax) 17 gm DAILY PO Last administered on 04/11/19 08:50; Admin Dose 17 GM; Start 04/11/19 at 09:00 Assessment/Plan Hospital Course (Demo Recall) 1. Acute exacerbation of the iliotibial band syndrome, status post fall; pain out of proportion, but the patient suffers from multiple different pain pathologies, previously well-managed by pain management doctor when she was here in this hospital by Dr. Faye in the ARU. We will recommend physical therapy. Neurology consult. ARU evaluation, may need to go back to outpatient pain management if does not qualify. 2. Anemia. 3. Status post fall with contusion. Will x-ray hips. 4. Progressive decline in function. Rule out other CVA, will check a CT of the head. neurology consultation 5. Frequent falls, doubt syncopal. May benefit from more aggressive physical therapy. Look for underlying cause. 6. History of asthma. Continue Advair and nebulizers p.r.n. 7. Diabetes. Continue regular medications. 8. Hypertension. Continue regular medications. Monitor labs. 9. History of previous cerebrovascular accident. Medication optimized. 10. encephalopathy- transient. may be toxic from meds or uti. avoid sedatives. neuro consult appreciate. unchanged ct head.11. 11. uti- k pneumonia. pansensitive. started macrobid. 12. aphasia- transient. ro tia. neuro fu. get echo and carotid. RQAUEL DOWNING MD Apr 11, 2019 10:20
[2019-04-11 13:12] VITALS: BP 132/69; RESP 18
[2019-04-11 19:29] VITALS: BP 108/50; PULSE 66; RESP 18
[2019-04-11] MEDS: ATORVASTATIN 40 MG TAB PO SCH (20:46)
[2019-04-12] MEDS: HYDROmorphONE 1 MG/ML SYG IV PRN ×5 (00:28→18:32)
[2019-04-12 01:13] VITALS: BP 144/66; PULSE 65; RESP 18
[2019-04-12] MEDS: ACCU-CHEK XX SCH (02:00)
[2019-04-12 07:44] VITALS: BP 169/74; PULSE 65; RESP 18
--- NOTE | 2019-04-12 08:12 | RADRPT ---
Echocardiogram Report Patient Name: Cinthya GARCIAent ID: [id number] : 1960 (59y 2m)Study Date: 04/11/2019 11:56:15 AM Gender: FAccession #: [id number] Tech: EstefaniaSharon Dubon [facility] Location: 2550 Ref.Physician: RAQUEL DOWNING Height(Cm): BSA: Weight(Kg): Quality: AdequateOrder Physician: RAQUEL DOWNING Account #: Procedures: Echocardiographic Report: Transthoracic echocardiogram with complete 2D, M-Mode, and doppler examination. Indications: Transient Ischemic Attack. Measurements: 2D/M Mode Doppler Measurement Value Normal Range Measurement Value Normal Range LVIDd 2D 5.0 [ 3.8 - 5.2 ] cm AV Mean Ernst 1.4 [ 70.0 - 90.0 ] cm/sec LVIDs 2D 2.4 [ 2.2 - 3.5 ] cm AV Mean PG 9.0 [ 2.0 - 4.0 ] mmHg LVPWd 2D 1.0 [ 0.6 - 0.9 ] cm AV Peak Ernst 2.2 [ 100.0 - 170.0 ] cm/sec IVSd 2D 1.0 [ 0.6 - 0.9 ] cm AV Peak PG 19.0 [ 2.0 - 9.0 ] mmHg AoR Diam 2D 2.5 [ 2.3 - 3.1 ] cm AV VTI 52.3 cm EDV 2D 117.0 [ 46.0 - 106.0 ] ml LVOT Mean Ernst 1.1 [ 60.0 - 80.0 ] cm/sec ESV 2D 19.7 [ 14.0 - 42.0 ] ml LVOT Mean PG 6.0 [ 1.0 - 3.0 ] mmHg EF 2D 83.2 [ 54.0 - 74.0 ] percent LVOT Peak Ernst 1.5 [ 70.0 - 110.0 ] cm/sec LA Dimen 2D 3.5 [ 2.7 - 3.8 ] cm LVOT Peak PG 9.0 [ 2.0 - 6.0 ] mmHg LVOT VTI 34.7 [ 20.0 - 30.0 ] cm MV E Peak Ernst 1.4 [ 60.0 - 130.0 ] cm/sec MV A Peak Ernst 1.0 [ 100.0 - 120.0 ] cm/sec MV E/A 1.3 [ 0.8 - 1.5 ] ratio MV Decel Time 239 [ 104 - 258 ] msec Lat E` Ernst 0.1 [ 10.0 - 15.0 ] cm/sec Lateral E/E` 22.3 [ 1.0 - 2.0 ] ratio Med E` Ernst 0.0 cm/sec MV E/A 1.3 [ 0.8 - 1.5 ] ratio TR Peak Ernst 2.7 [ 100.0 - 280.0 ] cm/sec TR Peak PG 29.0 mmHg RVSP 39.0 [ 10.0 - 36.0 ] mmHg RA Pressure 10.0 mmHg Findings: Left Ventricle: Normal left ventricular systolic function. Normal left ventricular cavity size. Normal left ventricular wall thickness. Ejection fraction is visually estimated at 65-70 %. Tissue Doppler/Mitral Doppler indices are within normal limits. Right Ventricle: Normal right ventricular size. Normal right ventricular systolic function. Left Atrium: The left atrium is normal in size. Right Atrium: The right atrium is normal in size. Mitral Valve: Normal appearance of the mitral valve. Mild mitral annular calcification. Trace mitral regurgitation. Aortic Valve: Aortic valve Max velocity 2.16 m/sec. Max PG 19.00 mmHg. Mean PG 9.00 mmHg. Aortic sclerosis without significant stenosis. No aortic regurgitation. Tricuspid Valve: Normal appearance of the tricuspid valve. The estimated Peak RVSP is 39 mmHg. There is trace tricuspid regurgitation. Pulmonic Valve: Pulmonic valve not well visualized. Pericardium: Normal pericardium with no significant pericardial effusion. Aorta: Normal aortic root. IVC: Normal inferior vena cava with poor inspiratory collapse consistent with elevated right atrial pressures. Conclusions: Normal left ventricular systolic function. Normal left ventricular cavity size. Normal left ventricular wall thickness. Ejection fraction is visually estimated at 65-70 %. Tissue Doppler/Mitral Doppler indices are within normal limits. Normal appearance of the mitral valve. Mild mitral annular calcification. Trace mitral regurgitation. Aortic valve Max velocity 2.16 m/sec. Max PG 19.00 mmHg. Mean PG 9.00 mmHg. Aortic sclerosis without significant stenosis. No aortic regurgitation. Normal appearance of the tricuspid valve. The estimated Peak RVSP is 39 mmHg. There is trace tricuspid regurgitation. Electronically Signed By: Aniket Girard 2019-04-12 08:11:43 PDT
[2019-04-12] MEDS: INSULIN ASPART [NOVOLOG] 3 ML PEN SC SCH ×4 (08:50→20:39)
[2019-04-12] MEDS: ENOXAPARIN 40 MG/0.4 ML SYG SC SCH (08:51)
[2019-04-12] MEDS: POLYETHYLENE GLYCOL 17 GM PACKET PO SCH (08:53)
[2019-04-12] MEDS: NITROFURANTOIN (SR) 100 MG CAP PO SCH ×2 (08:53→20:30)
[2019-04-12] MEDS: DOCUSATE SODIUM 100 MG CAP PO SCH ×2 (08:53→20:29)
[2019-04-12] MEDS: PREGABALIN 75 MG CAP PO SCH ×3 (08:54→20:30)
[2019-04-12] MEDS: LABETALOL 200 MG TAB PO SCH ×3 (08:54→20:34)
[2019-04-12] MEDS: FUROSEMIDE 20 MG TAB PO SCH (08:54)
[2019-04-12] MEDS: SOLIFENACIN 5 MG TAB PO SCH (08:55)
[2019-04-12] MEDS: metFORMIN 500 MG TAB PO SCH ×2 (08:55→18:06)
[2019-04-12] MEDS: LINAGLIPTIN 5 MG TABLET PO SCH (08:55)
[2019-04-12] MEDS: ASPIRIN 81 MG TAB PO SCH (08:56)
[2019-04-12] MEDS: NIFEdipine (XL) 30 MG TAB PO SCH ×2 (08:56→20:34)
[2019-04-12] MEDS: LOSARTAN 50 MG TAB PO SCH (08:56)
[2019-04-12] MEDS: BACLOFEN 10 MG TAB PO SCH ×3 (08:56→20:28)
[2019-04-12] MEDS: SPIRONOLACTONE 25 MG TAB PO SCH (08:56)
[2019-04-12] MEDS: ALBUTEROL HFA 8 GM INHALER INH SCH ×3 (08:57→20:35)
[2019-04-12] MEDS: PANTOPRAZOLE (EC) 40 MG TAB PO SCH (08:58)
[2019-04-12] MEDS: ACETAMINOPHEN 325 MG TAB PO PRN ×2 (11:14→20:31)
--- NOTE | 2019-04-12 12:50 | CONS ---
Consult Date/Type/Reason Admit Date/Time Apr 08, 2019 at 05:32 Initial Consult Date Requesting Provider: RAQUEL DOWNING MD Date/Time of Note DATE: 04/12/19 TIME: 12:49 Subjective 59-year-old female with a past medical history of previous CVA, history of chronic pain syndrome, history of right iliotibial band syndrome, chronic neuropathic pain, history of left-sided paresis, hyperlipidemia, diabetes type 2, obstructive sleep apnea, depression, coronary artery, history of asthma, hypertension, obesity, and chronic headaches. The patient presents from home after having a fall yesterday, unable to manage the amount of pain that she is having. The patient has noted since her previous admission to the acute rehab, a progressive decline in her physical function. Unclear if she had further neurologic disease. The patient complains of pain similar to her iliotibial ba nd syndrome. The patient is being managed by an outpatient pain management doctor for her chronic pain. No recent changes to any of her medications. Known to have leukocytosis. X-rays were negative. noted some encephalopathy possibly related to meds and poss uti notes anxiety. noted poss aphasia had carotid showing 50-70% ica L lesion REVIEW OF SYSTEMS: A 14-point review of systems attempted and negative. PHYSICAL EXAMINATION: HEENT: Normocephalic, atraumatic. Pupils equal, round, and reactive to light. Oropharynx shows moist mucous membranes. NECK: Supple. HEART: Regular rate and rhythm. LUNGS: Clear to auscultation. ABDOMEN: Soft, nontender, and nondistended. Normoactive bowel sounds. EXTREMITIES: No clubbing, cyanosis, or edema. SKIN: Shows no rashes. BACK: Some point tenderness. HIP: Shows tenderness around the right thigh. Objective Vitals Vital Signs Date Temp Pulse Resp B/P (MAP) Pulse Ox O2 O2 Flow FiO2 Time Delivery Rate 04/12/19 98.5 65 18 169/74 96 07:44 (105) 04/11/19 Room Air 13:12 04/08/19 30 23:31 Intake and Output 04/11/19 04/11/19 04/12/19 1414:59 22:59 06:59 IntakeIntake Total 1400 ml 460 ml OutputOutput Total 1400 ml 200 ml BalanceBalance 0 ml 260 ml Results/Medications Result Diagram: 04/09/19 0526 04/09/19 0526 Results 24 hrs Laboratory Tests Test 04/11/19 13:05 04/11/19 18:12 04/11/19 20:45 04/12/19 02:47 Bedside Glucose 148 151 189 160 Test 04/12/19 08:46 Bedside Glucose 185 Home Meds Reported Medications Sitagliptin Phos-Metformin Hcl (Janumet XR) 100-1,000 Mg Tbmp.24hr, 1 TAB PO WITH DINNER, #30 TAB 04/08/19 Psyllium Husk/Calcium Carb (Metamucil Plus Calcium Capsule) 1 Each Capsule, 2 EACH PO DAILY, CAP 04/08/19 Docusate Sodium* (Colace*) 100 Mg Capsule, 100 MG PO BID, #60 CAP 04/08/19 Aspirin* (Aspirin*) 325 Mg Tablet, 81 MG PO QID PRN for PAIN, TAB 04/08/19 Acetaminophen* (Tylophen*) 500 Mg Capsule, 650 MG PO Q6H PRN for PAIN LEVEL 1-3, TAB 04/08/19 Salmeterol Xinaf-Fluticasone* (Advair HFA*) 230/12 Aerosol Inhaler, 2 INH IH BID, #1 INHALER 04/08/19 Albuterol Sulfate* (Proair HFA*) 8.5 Gm Hfa.aer.ad, 2 PUFF INH TID, #1 INHALER 04/08/19 Hydromorphone Hcl* (Hydromorphone Hcl*) 4 Mg Tablet, 4 MG PO Q6 PRN for PAIN, TAB 04/08/19 Pregabalin* (Lyrica*) 75 Mg Capsule, 75 MG PO QHS, CAP 04/08/19 Pregabalin* (Lyrica*) 50 Mg Capsule, 50 MG PO DAILY, CAP 04/08/19 Baclofen* (Baclofen*) 20 Mg Tablet, 20 MG PO TID, TAB 04/08/19 Solifenacin* (Vesicare*) 10 Mg Tablet, 10 MG PO DAILY, TAB 04/08/19 Pantoprazole* (Protonix*) 40 Mg Tablet.dr, 40 MG PO DAILY, TAB 04/08/19 Atorvastatin* (Atorvastatin*) 40 Mg Tablet, 40 MG PO QHS, #30 TAB 04/08/19 Spironolactone* (Aldactone*) 25 Mg Tablet, 25 MG PO DAILY, #30 TAB 04/08/19 Labetalol Hcl* (Labetalol Hcl*) 200 Mg Tablet, 400 MG PO TID, TAB 04/08/19 Losartan Potassium* (Cozaar*) 100 Mg Tablet, 100 MG PO DAILY, #30 TAB 04/08/19 Hydralazine Hcl* (Hydralazine Hcl*) 10 Mg Tablet, 10 MG PO BID, #120 TAB 04/08/19 Nifedipine* (Nifedipine ER*) 60 Mg Tablet.sa, 60 MG PO BID, TAB.SA 04/08/19 Glipizide* (Glipizide*) 5 Mg Tablet, 25 MG PO BID, TAB 04/08/19 Medications Current Medications Hydromorphone HCl (Dilaudid) 4 mg Q4H PRN PO SEVERE PAIN LEVEL 7-10; Start 04/08/19 at 08:00 Hydromorphone HCl (Dilaudid) 1 mg Q4H PRN IV SEVERE PAIN LEVEL 7-10 Last administered on 04/12/19at 08:40; Admin Dose 1 MG; Start 04/08/19 at 08:00 IV Flush (NS 3 ml) 3 ml PER PROTOCOL IV ; Start 04/08/19 at 11:30 Docusate Sodium (Colace) 100 mg Q12H PRN PO .CONSTIPATION; Start 04/08/19 at 11:30 Enoxaparin Sodium (Lovenox) 40 mg DAILY SC Last administered on 04/12/19at 08:51; Admin Dose 40 MG; Start 04/09/19 at 09:00 Diagnostic Test (Pha) (Accu-Chek) 1 ea 02 XX Last administered on 04/09/19at 01:48; Admin Dose 1 EA; Start 04/09/19 at 02:00 Insulin Aspart (Novolog Insulin Pen) NOVOLOG *MILD* ALGORITHM WITH MEALS BEDTIME SC Last administered on 04/12/19at 08:50; Admin Dose 2 UNIT; Start 04/08/19 at 18:00 Miscellaneous Information 1 ea NOTE XX ; Start 04/08/19 at 17:30 Glucose (Glutose) 15 gm Q15M PRN PO DECREASED GLUCOSE; Start 04/08/19 at 17:30 Glucose (Glutose) 22.5 gm Q15M PRN PO DECREASED GLUCOSE; Start 04/08/19 at 17:30 Dextrose (D50w Syringe) 25 ml Q15M PRN IV DECREASED GLUCOSE; Start 04/08/19 at 17:30 Dextrose (D50w Syringe) 50 ml Q15M PRN IV DECREASED GLUCOSE; Start 04/08/19 at 17:30 Glucagon (Glucagen) 1 mg Q15M PRN IM DECREASED GLUCOSE; Start 04/08/19 at 17:30 Glucose (Glutose) 15 gm Q15M PRN BUCCAL DECREASED GLUCOSE; Start 04/08/19 at 17:30 Albuterol (Ventolin Hfa) 2 puff TID INH Last administered on 04/12/19 08:57; Admin Dose 2 PUFF; Start 04/08/19 at 21:00 Aspirin (Aspirin) 81 mg DAILY PO Last administered on 04/12/19 08:56; Admin Dose 81 MG; Start 04/09/19 at 09:00 Atorvastatin Calcium (Lipitor) 40 mg QHS PO Last administered on 04/11/19 20:46; Admin Dose 40 MG; Start 04/08/19 at 21:00 Baclofen (Lioresal) 20 mg TID PO Last administered on 04/12/19 08:56; Admin Dose 20 MG; Start 04/08/19 at 21:00 Docusate Sodium (Colace) 100 mg BID PO Last administered on 04/12/19 08:53; Admin Dose 100 MG; Start 04/08/19 at 21:00 Hydralazine HCl (Apresoline) 10 mg BID PO Last administered on 04/12/19 08:55; Admin Dose 10 MG; Start 04/08/19 at 21:00 Labetalol HCl (Normodyne) 400 mg TID PO Last administered on 04/12/19 08:54; Admin Dose 400 MG; Start 04/08/19 at 21:00 Losartan Potassium (Cozaar) 100 mg DAILY PO Last administered on 04/12/19 08:56; Admin Dose 100 MG; Start 04/09/19 at 09:00 Pantoprazole (Protonix Tab) 40 mg DAILY PO Last administered on 04/12/19 08:58; Admin Dose 40 MG; Start 04/09/19 at 09:00 Solifenacin (Vesicare) 10 mg DAILY PO Last administered on 04/12/19 08:55; Adm in Dose 10 MG; Start 04/09/19 at 09:00 Spironolactone (Aldactone) 25 mg DAILY PO Last administered on 04/12/19 08:56; Admin Dose 25 MG; Start 04/09/19 at 09:00 Linagliptin (Tradjenta) 5 mg DAILY PO Last administered on 04/12/19 08:55; Admin Dose 5 MG; Start 04/09/19 at 09:00 Metformin HCl (Glucophage) 500 mg BID WITH MEALS PO Last administered on 04/12/19 08:55; Admin Dose 500 MG; Start 04/09/19 at 08:00 Pregabalin (Lyrica) 75 mg TID PO Last administered on 04/12/19 08:54; Admin Dose 75 MG; Start 04/09/19 at 13:00 Nitrofurantoin Macrocrystals (Macrobid) 100 mg BID PO Last administered on 04/12/19 08:53; Admin Dose 100 MG; Start 04/10/19 at 11:00 Nifedipine (Procardia Xl) 30 mg BID PO Last administered on 04/12/19 08:56; Admin Dose 30 MG; Start 04/10/19 at 21:00 Furosemide (Lasix) 20 mg DAILY PO Last administered on 04/12/19 08:54; Admin Dose 20 MG; Start 04/11/19 at 09:00 Acetaminophen (Tylenol Tab) 650 mg Q6H PRN PO MILD PAIN(1-3)OR ELEVATED TEMP Last administered on 04/12/19 11:14; Admin Dose 650 MG; Start 04/10/19 at 11:00 Polyethylene Glycol (Miralax) 17 gm DAILY PO Last administered on 04/12/19 08:53; Admin Dose 17 GM; Start 04/11/19 at 09:00 Assessment/Plan Hospital Course (Demo Recall) 1. Acute exacerbation of the iliotibial band syndrome, status post fall; pain out of proportion, but the patient suffers from multiple different pain pathologies, previously well-managed by pain management doctor when she was here in this hospital by Dr. Faye in the ARU. We will recommend physical therapy. Neurology consult. ARU evaluation, may need to go back to outpatient pain management if does not qualify. 2. Anemia. 3. Status post fall with contusion. Will x-ray hips. 4. Progressive decline in function. Rule out other CVA, will check a CT of the head. neurology consultation 5. Frequent falls, doubt syncopal. May benefit from more aggressive physical therapy. Look for underlying cause. 6. History of asthma. Continue Advair and nebulizers p.r.n. 7. Diabetes. Continue regular medications. 8. Hypertension. Continue regular medications. Monitor labs. 9. History of previous cerebrovascular accident. Medication optimized. 10. encephalopathy- transient. may be toxic from meds or uti. avoid se datives. neuro consult appreciate. unchanged ct head.11. 11. uti- k pneumonia. pansensitive. started macrobid. 12. aphasia- transient. ro tia. neuro fu. note L ICA lesion. will get vascular consult. RAQUEL DOWNING MD Apr 12, 2019 12:50
[2019-04-12 13:10] VITALS: BP 141/73; PULSE 66; RESP 18
[2019-04-12 20:06] VITALS: BP 149/67; PULSE 66; RESP 19
[2019-04-12] MEDS: ATORVASTATIN 40 MG TAB PO SCH (20:29)
[2019-04-13] MEDS: ACCU-CHEK XX SCH (02:00)
[2019-04-13] MEDS: HYDROmorphONE 1 MG/ML SYG IV PRN ×2 (02:00→06:05)
[2019-04-13] MEDS ORDERED: IOHEXOL 100 ML ONE (07:54)
[2019-04-13] MEDS ORDERED: SOD CHLORIDE 0.9% 100 ML ONE (07:54)
[2019-04-13] MEDS: metFORMIN 500 MG TAB PO SCH ×2 (07:59→17:44)
[2019-04-13] MEDS: ALBUTEROL HFA 8 GM INHALER INH SCH ×3 (08:10→20:27)
[2019-04-13] MEDS: NITROFURANTOIN (SR) 100 MG CAP PO SCH ×2 (08:11→20:24)
[2019-04-13] MEDS: DOCUSATE SODIUM 100 MG CAP PO SCH ×2 (08:11→20:24)
[2019-04-13] MEDS: NIFEdipine (XL) 30 MG TAB PO SCH ×2 (08:11→20:24)
[2019-04-13] MEDS: LOSARTAN 50 MG TAB PO SCH (08:12)
[2019-04-13] MEDS: ASPIRIN 81 MG TAB PO SCH (08:12)
[2019-04-13] MEDS: LABETALOL 200 MG TAB PO SCH ×3 (08:12→20:25)
[2019-04-13] MEDS: SOLIFENACIN 5 MG TAB PO SCH (08:12)
[2019-04-13] MEDS: SPIRONOLACTONE 25 MG TAB PO SCH (08:13)
[2019-04-13] MEDS: PANTOPRAZOLE (EC) 40 MG TAB PO SCH (08:13)
[2019-04-13] MEDS: BACLOFEN 10 MG TAB PO SCH ×3 (08:13→20:24)
[2019-04-13] MEDS: FUROSEMIDE 20 MG TAB PO SCH (08:15)
[2019-04-13] MEDS: LINAGLIPTIN 5 MG TABLET PO SCH (08:15)
[2019-04-13] MEDS: PREGABALIN 75 MG CAP PO SCH ×3 (08:15→20:23)
[2019-04-13 08:18] VITALS: BP 192/76; PULSE 65; RESP 20
[2019-04-13] MEDS: ENOXAPARIN 40 MG/0.4 ML SYG SC SCH (08:22)
[2019-04-13] MEDS: POLYETHYLENE GLYCOL 17 GM PACKET PO SCH (08:25)
[2019-04-13] MEDS: INSULIN ASPART [NOVOLOG] 3 ML PEN SC SCH ×4 (08:44→21:00)
[2019-04-13] MEDS: HYDROmorphONE 4 MG TAB PO PRN ×4 (10:11→23:33)
--- NOTE | 2019-04-13 11:42 | CONS ---
Consult Date/Type/Reason Admit Date/Time Apr 08, 2019 at 05:32 Initial Consult Date Requesting Provider: RAQUEL DOWNING MD Date/Time of Note DATE: 04/13/19 TIME: 11:37 Subjective 59-year-old female with a past medical history of previous CVA, history of chronic pain syndrome, history of right iliotibial band syndrome, chronic neuropathic pain, history of left-sided paresis, hyperlipidemia, diabetes type 2, obstructive sleep apnea, depression, coronary artery, history of asthma, hypertension, obesity, and chronic headaches. The patient presents from home after having a fall yesterday, unable to manage the amount of pain that she is having. The patient has noted since her previous admission to the acute rehab, a progressive decline in her physical function. Unclear if she had further neurologic disease. The patient complains of pain similar to her iliotibial ba nd syndrome. The patient is being managed by an outpatient pain management doctor for her chronic pain. No recent changes to any of her medications. Known to have leukocytosis. X-rays were negative. noted some encephalopathy possibly related to meds and poss uti notes anxiety. noted poss aphasia episodic. had carotid showing 50-70% ica L lesion. DW dr. ott. REVIEW OF SYSTEMS: A 14-point review of systems attempted and negative. PHYSICAL EXAMINATION: HEENT: Normocephalic, atraumatic. Pupils equal, round, and reactive to light. Oropharynx shows moist mucous membranes. NECK: Supple. HEART: Regular rate and rhythm. LUNGS: Clear to auscultation. ABDOMEN: Soft, nontender, and nondistended. Normoactive bowel sounds. EXTREMITIES: No clubbing, cyanosis, or edema. SKIN: Shows no rashes. BACK: Some point tenderness. HIP: Shows tenderness around the right thigh. Objective Vitals Vital Signs Date Temp Pulse Resp B/P (MAP) Pulse Ox O2 O2 Flow FiO2 Time Delivery Rate 04/13/19 97.9 65 20 192/76 92 08:18 (114) 04/12/19 Room Air 13:10 Intake and Output 04/12/19 04/12/19 04/13/19 1515:00 23:00 07:00 IntakeIntake Total 600 ml 240 ml OutputOutput Total 750 ml 300 ml BalanceBalance -150 ml -60 ml Results/Medications Result Diagram: 04/09/1904/09/19 0526 Results 24 hrs Laboratory Tests Test 04/12/19 12:53 04/12/19 18:02 04/12/19 20:27 04/13/19 02:29 Bedside Glucose 127 144 237 H 145 Test 04/13/19 08:29 Bedside Glucose 184 Home Meds Reported Medications Sitagliptin Phos-Metformin Hcl (Janumet XR) 100-1,000 Mg Tbmp.24hr, 1 TAB PO WITH DINNER, #30 TAB 04/08/19 Psyllium Husk/Calcium Carb (Metamucil Plus Calcium Capsule) 1 Each Capsule, 2 EACH PO DAILY, CAP 04/08/19 Docusate Sodium* (Colace*) 100 Mg Capsule, 100 MG PO BID, #60 CAP 04/08/19 Aspirin* (Aspirin*) 325 Mg Tablet, 81 MG PO QID PRN for PAIN, TAB 04/08/19 Acetaminophen* (Tylophen*) 500 Mg Capsule, 650 MG PO Q6H PRN for PAIN LEVEL 1-3, TAB 04/08/19 Salmeterol Xinaf-Fluticasone* (Advair HFA*) 230/12 Aerosol Inhaler, 2 INH IH BID, #1 INHALER 04/08/19 Albuterol Sulfate* (Proair HFA*) 8.5 Gm Hfa.aer.ad, 2 PUFF INH TID, #1 INHALER 04/08/19 Hydromorphone Hcl* (Hydromorphone Hcl*) 4 Mg Tablet, 4 MG PO Q6 PRN for PAIN, TAB 04/08/19 Pregabalin* (Lyrica*) 75 Mg Capsule, 75 MG PO QHS, CAP 04/08/19 Pregabalin* (Lyrica*) 50 Mg Capsule, 50 MG PO DAILY, CAP 04/08/19 Baclofen* (Baclofen*) 20 Mg Tablet, 20 MG PO TID, TAB 04/08/19 Solifenacin* (Vesicare*) 10 Mg Tablet, 10 MG PO DAILY, TAB 04/08/19 Pantoprazole* (Protonix*) 40 Mg Tablet.dr, 40 MG PO DAILY, TAB 04/08/19 Atorvastatin* (Atorvastatin*) 40 Mg Tablet, 40 MG PO QHS, #30 TAB 04/08/19 Spironolactone* (Aldactone*) 25 Mg Tablet, 25 MG PO DAILY, #30 TAB 04/08/19 Labetalol Hcl* (Labetalol Hcl*) 200 Mg Tablet, 400 MG PO TID, TAB 04/08/19 Losartan Potassium* (Cozaar*) 100 Mg Tablet, 100 MG PO DAILY, #30 TAB 04/08/19 Hydralazine Hcl* (Hydralazine Hcl*) 10 Mg Tablet, 10 MG PO BID, #120 TAB 04/08/19 Nifedipine* (Nifedipine ER*) 60 Mg Tablet.sa, 60 MG PO BID, TAB.SA 04/08/19 Glipizide* (Glipizide*) 5 Mg Tablet, 25 MG PO BID, TAB 04/08/19 Medications Current Medications Hydromorphone HCl (Dilaudid) 4 mg Q4H PRN PO SEVERE PAIN LEVEL 7-10 Last administered on 04/13/19at 10:11; Admin Dose 4 MG; Start 04/08/19 at 08:00 Hydromorphone HCl (Dilaudid) 1 mg Q4H PRN IV SEVERE PAIN LEVEL 7-10 Last administered on 04/13/19at 06:05; Admin Dose 1 MG; Start 04/08/19 at 08:00 IV Flush (NS 3 ml) 3 ml PER PROTOCOL IV ; Start 04/08/19 at 11:30 Docusate Sodium (Colace) 100 mg Q12H PRN PO .CONSTIPATION; Start 04/08/19 at 1 1:30 Enoxaparin Sodium (Lovenox) 40 mg DAILY SC Last administered on 04/13/19at 08:22; Admin Dose 40 MG; Start 04/09/19 at 09:00 Diagnostic Test (Pha) (Accu-Chek) 1 ea 02 XX Last administered on 04/09/19at 01:48; Admin Dose 1 EA; Start 04/09/19 at 02:00 Insulin Aspart (Novolog Insulin Pen) NOVOLOG *MILD* ALGORITHM WITH MEALS BEDTIME SC Last administered on 04/13/19at 08:44; Admin Dose 2 UNIT; Start 04/08/19 at 18:00 Miscellaneous Information 1 ea NOTE XX ; Start 04/08/19 at 17:30 Glucose (Glutose) 15 gm Q15M PRN PO DECREASED GLUCOSE; Start 04/08/19 at 17:30 Glucose (Glutose) 22.5 gm Q15M PRN PO DECREASED GLUCOSE; Start 04/08/19 at 17:30 Dextrose (D50w Syringe) 25 ml Q15M PRN IV DECREASED GLUCOSE; Start 04/08/19 at 17:30 Dextrose (D50w Syringe) 50 ml Q15M PRN IV DECREASED GLUCOSE; Start 04/08/19 at 17:30 Glucagon (Glucagen) 1 mg Q15M PRN IM DECREASED GLUCOSE; Start 04/08/19 at 17:30 Glucose (Glutose) 15 gm Q15M PRN BUCCAL DECREASED GLUCOSE; Start 04/08/19 at 17:30 Albuterol (Ventolin Hfa) 2 puff TID INH Last administered on 04/13/19 08:10; Admin Dose 2 PUFF; Start 04/08/19 at 21:00 Aspirin (Aspirin) 81 mg DAILY PO Last administered on 04/13/19 08:12; Admin Dose 81 MG; Start 04/09/19 at 09:00 Atorvastatin Calcium (Lipitor) 40 mg QHS PO Last administered on 04/12/19 20: 29; Admin Dose 40 MG; Start 04/08/19 at 21:00 Baclofen (Lioresal) 20 mg TID PO Last administered on 04/13/19 08:13; Admin Dose 20 MG; Start 04/08/19 at 21:00 Docusate Sodium (Colace) 100 mg BID PO Last administered on 04/13/19 08:11; Admin Dose 100 MG; Start 04/08/19 at 21:00 Hydralazine HCl (Apresoline) 10 mg BID PO Last administered on 04/13/19 08:14; Admin Dose 10 MG; Start 04/08/19 at 21:00 Labetalol HCl (Normodyne) 400 mg TID PO Last administered on 04/13/19 08:12; Admin Dose 400 MG; Start 04/08/19 at 21:00 Losartan Potassium (Cozaar) 100 mg DAILY PO Last administered on 04/13/19 08:12; Admin Dose 100 MG; Start 04/09/19 at 09:00 Pantoprazole (Protonix Tab) 40 mg DAILY PO Last administered on 04/13/19 08:13; Admin Dose 40 MG; Start 04/09/19 at 09:00 Solifenacin (Vesicare) 10 mg DAILY PO Last administered on 04/13/19 08:12; Admin Dose 10 MG; Start 04/09/19 at 09:00 Spironolactone (Aldactone) 25 mg DAILY PO Last administered on 04/13/19 08:13; Admin Dose 25 MG; Start 04/09/19 at 09:00 Linagliptin (Tradjenta) 5 mg DAILY PO Last administered on 04/13/19 08:15; Admin Dose 5 MG; Start 04/09/19 at 09:00 Metformin HCl (Glucophage) 500 mg BID WITH MEALS PO Last administered on 04/12/19 18:06; Admin Dose 500 MG; Start 04/09/19 at 08:00 Pregabalin (Lyrica) 75 mg TID PO Last administered on 04/13/19 08:15; Admin Dose 75 MG; Start 04/09/19 at 13:00 Nitrofurantoin Macrocrystals (Macrobid) 100 mg BID PO Last administered on 04/13/19 08:11; Admin Dose 100 MG; Start 04/10/19 at 11:00 Nifedipine (Procardia Xl) 30 mg BID PO Last administered on 04/13/19 08:11; A dmin Dose 30 MG; Start 04/10/19 at 21:00 Furosemide (Lasix) 20 mg DAILY PO Last administered on 04/13/19 08:15; Admin Dose 20 MG; Start 04/11/19 at 09:00 Acetaminophen (Tylenol Tab) 650 mg Q6H PRN PO MILD PAIN(1-3)OR ELEVATED TEMP Last administered on 04/12/19 20:31; Admin Dose 650 MG; Start 04/10/19 at 11:00 Polyethylene Glycol (Miralax) 17 gm DAILY PO Last administered on 04/13/19 08:25; Admin Dose 17 GM; Start 04/11/19 at 09:00 Assessment/Plan Hospital Course (Demo Recall) 1. Acute exacerbation of the iliotibial band syndrome, status post fall; pain o ut of proportion, but the patient suffers from multiple different pain pathologies, previously well-managed by pain management doctor when she was here in this hospital by Dr. Faye in the ARU. We will recommend physical therapy. Neurology consult. ARU evaluation, may need to go back to outpatient pain management if does not qualify. 2. Anemia. 3. Status post fall with contusion. Will x-ray hips. 4. Progressive decline in function. Rule out other CVA, will check a CT of the head. neurology consultation 5. Frequent falls, doubt syncopal. May benefit from more aggressive physical therapy. Look for underlying cause. 6. History of asthma. Continue Advair and nebulizers p.r.n. 7. Diabetes. Continue regular medications. increase metformin 8. Hypertension. Continue regular medications. Monitor labs. 9. History of previous cerebrovascular accident. Medication optimized. 10. encephalopathy- transient. may be toxic from meds or uti. avoid sedatives. neuro consult appreciate. unchanged ct head. noted carotid duplex result. being worked up 11. uti- k pneumonia. pansensitive. started macrobid. 12. aphasia- transient. ro tia. neuro fu. note L ICA lesion. appreciate vascular consult. plan on cta. RAQUEL DOWNING MD Apr 13, 2019 11:42
[2019-04-13] MEDS: FLUTICASONE/VILANTEROL 100-25 INH SCH (14:32)
[2019-04-13] MEDS: glipiZIDE (XL) 5 MG TAB PO SCH (14:32)
[2019-04-13 15:36] VITALS: BP 136/62; PULSE 62; RESP 18
--- NOTE | 2019-04-13 15:59 | CONS ---
DATE OF ADMISSION: 04/08/2019 DATE OF CONSULTATION: 04/13/2019 REFERRING PHYSICIAN: Sheng Downing MD REASON FOR CONSULTATION: Left carotid stenosis, history of stroke. HISTORY OF PRESENT ILLNESS: This is a 59-year-old woman with multiple medical problems. She has max betes, hyperlipidemia, hypertension. She is morbidly obese. She has got chronic pain syndrome. She had a stroke back about 6 months ago and has left-sided weakness. She has had multiple falls over t he last 6 months since the stroke. She has some problems with her iliotibial band on the left. It s eizes up on her, causes real severe pain in that she falls down. She is seeing a pain management doc tor. She came in on Tuesday because she fell again and had some bruising and pain in the right wrist. She had x-rays that showed no fracture. She had a CT of the brain that showed an old right morgan radiata lacunar infarct, nothing new. So x-rayed her pelvis, hip, forearm and all the studies were n egative for any fracture. At the same time she had a carotid duplex scan that showed moderate stenos is in the left internal carotid. The right looked widely patent and did not show any stenosis, but t he left has a 50% to 69% stenosis by velocity criteria in the proximal and mid portion. The right si ded velocities are all normal. I reviewed the study myself and there is a significant moderate steno sis. I do not see any sign of ulceration or any clot or anything on the duplex. She had a CTA of th e neck done today as well, but the results are pending. When I look at it there is a lot of motion a rtifact that needs to be dealt with. I really cannot interpret it. PAST MEDICAL HISTORY: Again, is significant for stroke, diabetes, hypertension. She has left-sided hemiparesis, hyperlipidemia, sleep apnea, morbid obesity, coronary artery disease. She had an DC in the past. She has asthma. She has chronic headaches that have developed after her stroke. She also has chronic neuropathic pain. MEDICATIONS: Consist of: 1. Paxil. 2. Glucophage. 3. Glucotrol. 4. Breo Ellipta inhaler. 5. Hydralazine. 6. Lasix. 7. Nifedipine. 8. Macrobid. 9. Lyrica. 10. Lovenox subcu. 11. Aspirin 12. Cozaar 13. Protonix. 14. Aldactone. 15. Tradjenta. 16. Metformin. 17. Albuterol. 18. Lipitor. 19. Baclofen. 20. Hydralazine. 21. Labetalol. 22. NovoLog. 23. Dilaudid. ALLERGIES: SHE IS ALLERGIC TO: 1. KEFLEX. 2. ERYTHROMYCIN. 3. TRAMADOL. SOCIAL HISTORY: She is a nonsmoker. She smoked said when she was young. Briefly, just socially but never was a heavy smoker. She does not drink or use any illicit drugs. FAMILY HISTORY: Significant chronic kidney disease. REVIEW OF SYSTEMS: She currently denies any chest pain or shortness of breath. She has bilateral le g edema. She has trouble walking because of the left-sided hemiparesis. She does report multiple ep isodes of falling over the last 6 months. She had when she fell the other day when she came in, she also had an episode where she had trouble finding words. She said she was repeating the same sentenc e over and over again for a few minutes, and she realized she was doing it but she said she could not change her speech. PHYSICAL EXAMINATION: GENERAL: She is a middle-aged woman. She is obese. She is in no acute distress. VITAL SIGNS: She has been afebrile. Blood pressure is 192/76, heart rate 65, respiratory rate is 20 , 92% sat on room air. NECK: She has 2+ carotid, radial and brachial pulses bilaterally. LUNGS: Clear. HEART: Regular rate and rhythm. ABDOMEN: Obese, soft, nontender. EXTREMITIES: She has 3+ edema in both legs, fairly tense edema going all the way down into the foot, pitting. I do not feel DP or PT pulses, but she is very swollen. There are no wounds on her feet. She has some decreased sensation but she can feel her feet. No ulcers on the calf or plantar surfac e of the foot. She has left-sided weakness, arm is weaker than the leg. She has no weakness on the right side. I reviewed her labs data all. LABORATORY DATA: I reviewed her labs. They all looked pretty normal, white count is normal. The he matologic study is normal with normal creatinine. Her triglycerides were elevated at 172. CRP is a little high at 1.1. Again, I reviewed the carotid duplex scan and it does show 50-69% stenosis in th e left internal carotid on velocity criteria. It is not a critical stenosis. Her stroke was on the right brain. She has no stenosis on the right. It is possible she had a TIA recently when she had t his episode of trouble with word finding, but it resolved very, very quickly and was right after she fell, could have been from pain medication as well. There was no show there is no evidence of a new stroke on the CT of the brain, the CTA of the neck is pending. I tried looking at the raw data, but there is a lot of motion artifact that is going to need some processing and a final read by the radio logist. Again, interpreted. I am going to follow up after the study. She is on all the appropriate medications for peripheral arterial disease. She also might benefit from Plavix on the top of the as pirin and Lipitor. Otherwise, I would not recommend any intervention unless CTA shows something more concerning. Dictated By: GERTRUDE BEAR/FLORENCE Conf#: [id number] DID#: [id number] CC: HENRRY PIEDRA DO; LAURA VOGEL; SHENG DOWNING MD;*End*
[2019-04-13] MEDS: ATORVASTATIN 40 MG TAB PO SCH (20:24)
[2019-04-13 20:27] VITALS: BP 154/70; PULSE 72
[2019-04-13] MEDS: ACETAMINOPHEN 325 MG TAB PO PRN (22:26)
[2019-04-14] MEDS: ACCU-CHEK XX SCH (02:00)
[2019-04-14 02:17] VITALS: BP 160/69; PULSE 64; RESP 20
[2019-04-14] MEDS: HYDROmorphONE 1 MG/ML SYG IV PRN (03:36)
[2019-04-14] MEDS: metFORMIN 500 MG TAB PO SCH ×2 (07:42→17:18)
[2019-04-14] MEDS: HYDROmorphONE 4 MG TAB PO PRN ×4 (07:43→20:19)
[2019-04-14] MEDS: INSULIN ASPART [NOVOLOG] 3 ML PEN SC SCH ×4 (07:55→21:55)
[2019-04-14 07:57] VITALS: BP 145/67; PULSE 72; RESP 18
[2019-04-14] MEDS: ALBUTEROL HFA 8 GM INHALER INH SCH ×3 (09:20→20:17)
[2019-04-14] MEDS: POLYETHYLENE GLYCOL 17 GM PACKET PO SCH (09:21)
[2019-04-14] MEDS: ASPIRIN 81 MG TAB PO SCH (09:21)
[2019-04-14] MEDS: NITROFURANTOIN (SR) 100 MG CAP PO SCH ×2 (09:21→20:18)
[2019-04-14] MEDS: FLUTICASONE/VILANTEROL 100-25 INH SCH (09:21)
[2019-04-14] MEDS: SOLIFENACIN 5 MG TAB PO SCH (09:23)
[2019-04-14] MEDS: LOSARTAN 50 MG TAB PO SCH (09:23)
[2019-04-14] MEDS: PAROXETINE (CR) 12.5 MG TAB PO SCH (09:24)
[2019-04-14] MEDS: DOCUSATE SODIUM 100 MG CAP PO SCH ×2 (09:24→20:18)
[2019-04-14] MEDS: BACLOFEN 10 MG TAB PO SCH ×3 (09:25→20:18)
[2019-04-14] MEDS: LABETALOL 200 MG TAB PO SCH ×3 (09:25→20:19)
[2019-04-14] MEDS: NIFEdipine (XL) 30 MG TAB PO SCH ×2 (09:25→20:19)
[2019-04-14] MEDS: PREGABALIN 75 MG CAP PO SCH ×3 (09:25→21:50)
[2019-04-14] MEDS: glipiZIDE (XL) 5 MG TAB PO SCH (09:26)
[2019-04-14] MEDS: SPIRONOLACTONE 25 MG TAB PO SCH (09:26)
[2019-04-14] MEDS: LINAGLIPTIN 5 MG TABLET PO SCH (09:26)
[2019-04-14] MEDS: PANTOPRAZOLE (EC) 40 MG TAB PO SCH (09:26)
[2019-04-14] MEDS: FUROSEMIDE 20 MG TAB PO SCH (09:27)
--- NOTE | 2019-04-14 10:26 | CONS ---
Consult Date/Type/Reason Admit Date/Time Apr 08, 2019 at 05:32 Initial Consult Date Requesting Provider: RAQUEL DOWNING MD Date/Time of Note DATE: 04/14/19 TIME: 10:25 Subjective 59-year-old female with a past medical history of previous CVA, history of chronic pain syndrome, history of right iliotibial band syndrome, chronic neuropathic pain, history of left-sided paresis, hyperlipidemia, diabetes type 2, obstructive sleep apnea, depression, coronary artery, history of asthma, hypertension, obesity, and chronic headaches. The patient presents from home after having a fall yesterday, unable to manage the amount of pain that she is having. The patient has noted since her previous admission to the acute rehab, a progressive decline in her physical function. Unclear if she had further neurologic disease. The patient complains of pain similar to her iliotibial ba nd syndrome. The patient is being managed by an outpatient pain management doctor for her chronic pain. No recent changes to any of her medications. Known to have leukocytosis. X-rays were negative. noted some encephalopathy possibly related to meds and poss uti notes anxiety. noted poss aphasia episodic. had carotid showing 50-70% ica L lesion. DW dr. ott. cta limited by motion but no significant lesion noted. REVIEW OF SYSTEMS: A 14-point review of systems attempted and negative. PHYSICAL EXAMINATION: HEENT: Normocephalic, atraumatic. Pupils equal, round, and reactive to light. Oropharynx shows moist mucous membranes. NECK: Supple. HEART: Regular rate and rhythm. LUNGS: Clear to auscultation. ABDOMEN: Soft, nontender, and nondistended. Normoactive bowel sounds. EXTREMITIES: No clubbing, cyanosis, or edema. SKIN: Shows no rashes. BACK: Some point tenderness. HIP: Shows tenderness around the right thigh. Objective Vitals Vital Signs Date Temp Pulse Resp B/P (MAP) Pulse Ox O2 O2 Flow FiO2 Time Delivery Rate 04/14/19 98.2 72 18 145/67 94 07:57 (93) 04/12/19 Room Air 13:10 Intake and Output 04/13/19 04/13/19 04/14/19 1515:00 23:00 07:00 IntakeIntake Total 560 ml 720 ml 300 ml BalanceBalance 560 ml 720 ml 300 ml Results/Medications Result Diagram: 04/13/19 1213 04/13/19 1213 Results 24 hrs Laboratory Tests Test 04/13/19 12:13 04/13/19 12:53 04/13/19 17:41 04/13/19 22:24 White Blood Count 9.7 # Red Blood Count 4.06 L Hemoglobin 11.0 L Hematocrit 34.5 L Mean Corpuscular 85.0 Volume Mean Corpuscular 27.1 L Hemoglobin Mean Corpuscular 31.9 L Hemoglobin Concent Red Cell 12.9 Distribution Width Platelet Count 391 Mean Platelet Volume 9.7 Immature 0.300 Granulocytes % Neutrophils % 66.0 Lymphocytes % 21.9 Monocytes % 8.3 Eosinophils % 3.0 Basophils % 0.5 Nucleated Red Blood 0.0 Cells % Immature 0.030 Granulocytes # Neutrophils # 6.4 Lymphocytes # 2.1 Monocytes # 0.8 Eosinophils # 0.3 Basophils # 0.1 Nucleated Red Blood 0.0 Cells # Erythrocyte 27 Sedimentation Rate Sodium Level 137 Potassium Level 4.0 Chloride Level 99 Carbon Dioxide Level 29 Anion Gap 9 Blood Urea Nitrogen 14 Creatinine 0.65 Est Glomerular > 60 Filtrat Rate mL/min Glucose Level 152 Calcium Level 10.0 Iron Level 59 Total Iron Binding 407 Capacity Percent Iron 14 L Saturation Total Bilirubin 0.6 Direct Bilirubin 0.00 Indirect Bilirubin 0.6 Aspartate Amino 33 Transf (AST/SGOT) Alanine 39 Aminotransferase (AL T/SGPT) Alkaline Phosphatase 103 C-Reactive Protein 1.1 H Total Protein 7.5 Albumin 4.2 Globulin 3.30 H Albumin/Globulin 1.27 Ratio Triglycerides Level 172 H Cholesterol Level 136 LDL Cholesterol, 73 Calculated HDL Cholesterol 29 L Cholesterol/HDL 4.6 Ratio Thyroid Stimulating 3.670 Hormone (TSH) Bedside Glucose 181 197 179 Test 04/14/19 05:20 04/14/19 07:46 Urine Color YELLOW Urine Clarity CLEAR Urine pH 7.0 Urine Specific 1.010 [place] Urine Ketones NEGATIVE Urine Nitrite NEGATIVE Urine Bilirubin NEGATIVE Urine Urobilinogen NEGATIVE Urine Leukocyte NEGATIVE Esterase Urine Hemoglobin NEGATIVE Urine Glucose NEGATIVE Urine Total Protein NEGATIVE Bedside Glucose 168 Home Meds Reported Medications Sitagliptin Phos-Metformin Hcl (Janumet XR) 100-1,000 Mg Tbmp.24hr, 1 TAB PO WITH DINNER, #30 TAB 04/08/19 Psyllium Husk/Calcium Carb (Metamucil Plus Calcium Capsule) 1 Each Capsule, 2 EACH PO DAILY, CAP 7/21/19 Docusate Sodium* (Colace*) 100 Mg Capsule, 100 MG PO BID, #60 CAP 04/08/19 Aspirin* (Aspirin*) 325 Mg Tablet, 81 MG PO QID PRN for PAIN, TAB 04/08/19 Acetaminophen* (Tylophen*) 500 Mg Capsule, 650 MG PO Q6H PRN for PAIN LEVEL 1-3, TAB 04/08/19 Salmeterol Xinaf-Fluticasone* (Advair HFA*) 230/12 Aerosol Inhaler, 2 INH IH BID, #1 INHALER 04/08/19 Albuterol Sulfate* (Proair HFA*) 8.5 Gm Hfa.aer.ad, 2 PUFF INH TID, #1 INHALER 04/08/19 Hydromorphone Hcl* (Hydromorphone Hcl*) 4 Mg Tablet, 4 MG PO Q6 PRN for PAIN, TAB 04/08/19 Pregabalin* (Lyrica*) 75 Mg Capsule, 75 MG PO QHS, CAP 04/08/19 Pregabalin* (Lyrica*) 50 Mg Capsule, 50 MG PO DAILY, CAP 04/08/19 Baclofen* (Baclofen*) 20 Mg Tablet, 20 MG PO TID, TAB 04/08/19 Solifenacin* (Vesicare*) 10 Mg Tablet, 10 MG PO DAILY, TAB 04/08/19 Pantoprazole* (Protonix*) 40 Mg Tablet.dr, 40 MG PO DAILY, TAB 04/08/19 Atorvastatin* (Atorvastatin*) 40 Mg Tablet, 40 MG PO QHS, #30 TAB 04/08/19 Spironolactone* (Aldactone*) 25 Mg Tablet, 25 MG PO DAILY, #30 TAB 04/08/19 Labetalol Hcl* (Labetalol Hcl*) 200 Mg Tablet, 400 MG PO TID, TAB 04/08/19 Losartan Potassium* (Cozaar*) 100 Mg Tablet, 100 MG PO DAILY, #30 TAB 04/08/19 Hydralazine Hcl* (Hydralazine Hcl*) 10 Mg Tablet, 10 MG PO BID, #120 TAB 04/08/19 Nifedipine* (Nifedipine ER*) 60 Mg Tablet.sa, 60 MG PO BID, TAB.SA 04/08/19 Glipizide* (Glipizide*) 5 Mg Tablet, 25 MG PO BID, TAB 04/08/19 Medications Current Medications Hydromorphone HCl (Dilaudid) 4 mg Q4H PRN PO SEVERE PAIN LEVEL 7-10 Last administered on 04/14/19at 07:43; Admin Dose 4 MG; Start 04/08/19 at 08:00 Hydromorphone HCl (Dilaudid) 1 mg Q4H PRN IV SEVERE PAIN LEVEL 7-10 Last administered on 04/14/19at 03:36; Admin Dose 1 MG; Start 04/08/19 at 08:00 IV Flush (NS 3 ml) 3 ml PER PROTOCOL IV ; Start 04/08/19 at 11:30 Docusate Sodium (Colace) 100 mg Q12H PRN PO .CONSTIPATION; Start 04/08/19 at 11:30 Enoxaparin Sodium (Lovenox) 40 mg DAILY SC Last administered on 04/13/19at 08:22; Admin Dose 40 MG; Start 04/09/19 at 09:00 Diagnostic Test (Pha) (Accu-Chek) 1 ea 02 XX Last administered on 04/09/19at 01:48; Admin Dose 1 EA; Start 04/09/19 at 02:00 Insulin Aspart (Novolog Insulin Pen) NOVOLOG *MILD* ALGORITHM WITH MEALS BEDTIME SC Last administered on 04/14/19at 07:55; Admin Dose 1 UNIT; Start 04/08/19 at 18:00 Miscellaneous Information 1 ea NOTE XX ; Start 04/08/19 at 17:30 Glucose (Glutose) 15 gm Q15M PRN PO DECREASED GLUCOSE; Start 04/08/19 at 17:30 Glucose (Glutose) 22.5 gm Q15M PRN PO DECREASED GLUCOSE; Start 04/08/19 at 17:30 Dextrose (D50w Syringe) 25 ml Q15M PRN IV DECREASED GLUCOSE; Start 04/08/19 at 17:30 Dextrose (D50w Syringe) 50 ml Q15M PRN IV DECREASED GLUCOSE; Start 04/08/19 at 17:30 Glucagon (Glucagen) 1 mg Q15M PRN IM DECREASED GLUCOSE; Start 04/08/19 at 17:30 Glucose (Glutose) 15 gm Q15M PRN BUCCAL DECREASED GLUCOSE; Start 04/08/19 at 17:30 Albuterol (Ventolin Hfa) 2 puff TID INH Last administered on 04/14/19 09:20; Admin Dose 2 PUFF; Start 04/08/19 at 21:00 Aspirin (Aspirin) 81 mg DAILY PO Last administered on 04/14/19 09:21; Admin Dose 81 MG; Start 04/09/19 at 09:00 Atorvastatin Calcium (Lipitor) 40 mg QHS PO Last administered on 04/13/19 20:24; Admin Dose 40 MG; Start 04/08/19 at 21:00 Baclofen (Lioresal) 20 mg TID PO Last administered on 04/14/19 09:25; Admin Dose 20 MG; Start 04/08/19 at 21:00 Docusate Sodium (Colace) 100 mg BID PO Last administered on 04/14/19 09:24; Admin Dose 100 MG; Start 04/08/19 at 21:00 Hydralazine HCl (Apresoline) 10 mg BID PO Last administered on 04/14/19 09:23; Admin Dose 10 MG; Start 04/08/19 at 21:00 Labetalol HCl (Normodyne) 400 mg TID PO Last administered on 04/14/19 09:25; Admin Dose 400 MG; Start 04/08/19 at 21:00 Losartan Potassium (Cozaar) 100 mg DAILY PO Last administered on 04/14/19 09:23; Admin Dose 100 MG; Start 04/09/19 at 09:00 Pantoprazole (Protonix Tab) 40 mg DAILY PO Last administered on 04/14/19 09:26; Admin Dose 40 MG; Start 04/09/19 at 09:00 Solifenacin (Vesicare) 10 mg DAILY PO Last administered on 04/14/19 09:23; Admin Dose 10 MG; Start 04/09/19 at 09:00 Spironolactone (Aldactone) 25 mg DAILY PO Last administered on 04/14/19 09:26; Admin Dose 25 MG; Start 04/09/19 at 09:00 Linagliptin (Tradjenta) 5 mg DAILY PO Last administered on 04/14/19 09:26; Admin Dose 5 MG; Start 04/09/19 at 09:00 Pregabalin (Lyrica) 75 mg TID PO Last administered on 04/14/19 09:25; Admin Dose 75 MG; Start 04/09/19 at 13:00 Nitrofurantoin Macrocrystals (Macrobid) 100 mg BID PO Last administered on 04/14/19 09:21; Admin Dose 100 MG; Start 04/10/19 at 11:00 Nifedipine (Procardia Xl) 30 mg BID PO Last administered on 04/14/19 09:25; Admin Dose 30 MG; Start 04/10/19 at 21:00 Furosemide (Lasix) 20 mg DAILY PO Last administered on 04/13/19 08:15; Admin Dose 20 MG; Start 04/11/19 at 09:00 Acetaminophen (Tylenol Tab) 650 mg Q6H PRN PO MILD PAIN(1-3)OR ELEVATED TEMP Last administered on 04/13/19 22:26; Admin Dose 650 MG; Start 04/10/19 at 11:00 Polyethylene Glycol (Miralax) 17 gm DAILY PO Last administered on 04/14/19 09:21; Admin Dose 17 GM; Start 04/11/19 at 09:00 Metformin HCl (Glucophage) 1,000 mg BID WITH MEALS PO ; Start 04/13/19 at 18:00 Paroxetine HCl (Paxil Cr) 37.5 mg DAILY PO Last administered on 04/14/19 09:24; Admin Dose 37.5 MG; Start 04/14/19 at 09:00 Glipizide (Glucotrol Xl) 5 mg DAILY PO Last administered on 04/14/19 09:26; Admin Dose 5 MG; Start 04/13/19 at 13:30 Fluticasone/ Vilanterol (Breo Ellipta 100-25 Mcg Inh) 1 inh DAILY INH Last administered on 04/14/19 09:21; Admin Dose 1 INH; Start 04/13/19 at 13:30 Hydralazine HCl (Apresoline) 25 mg Q6H PRN PO sbp>160; Start 04/13/19 at 12:00 Assessment/Plan Hospital Course (Demo Recall) 1. Acute exacerbation of the iliotibial band syndrome, status post fall; pain out of proportion, but the patient suffers from multiple different pain pathologies, previously well-managed by pain management doctor when she was here in this hospital by Dr. Faye in the ARU. We will recommend physical therapy. Neurology consult. ARU evaluation, may need to go back to outpatient pain management if does not qualify. 2. Anemia. 3. Status post fall with contusion. Will x-ray hips. 4. Progressive decline in function. Rule out other CVA, will check a CT of the head. neurology consultation 5. Frequent falls, doubt syncopal. May benefit from more aggressive physical therapy. Look for underlying cause. 6. History of asthma. Continue Advair and nebulizers p.r.n. 7. Diabetes. Continue regular medications. increase metformin 8. Hypertension. Continue regular medications. Monitor labs. 9. History of previous cerebrovascular accident. Medication optimized. 10. encephalopathy- transient. may be toxic from meds or uti. avoid sedatives. neuro consult appreciate. unchanged ct head. noted carotid duplex result. being worked up 11. uti- k pneumonia. pansensitive. started macrobid. 12. aphasia- transient. ro tia. neuro fu. note L ICA lesion. appreciate vascular consult. add plavix. discharge planning. RAQUEL DOWNING MD Apr 14, 2019 10:26
[2019-04-14] MEDS: ENOXAPARIN 40 MG/0.4 ML SYG SC SCH (11:01)
[2019-04-14 14:00] VITALS: BP 152/66; PULSE 64; RESP 16
[2019-04-14] MEDS: NYSTATIN 30 GM POWDER BTL TOP SCH ×2 (18:12→20:20)
[2019-04-14 19:40] VITALS: BP 134/60; PULSE 65; RESP 18
[2019-04-14] MEDS: ATORVASTATIN 40 MG TAB PO SCH (20:19)
[2019-04-15] MEDS: ACCU-CHEK XX SCH (02:00)
[2019-04-15] MEDS: HYDROmorphONE 4 MG TAB PO PRN ×5 (02:41→19:52)
[2019-04-15 02:45] VITALS: BP 175/72; PULSE 71; RESP 16
[2019-04-15 04:55] VITALS: BP 164/72; PULSE 71
[2019-04-15] MEDS: ACETAMINOPHEN 325 MG TAB PO PRN ×2 (04:56→12:19)
[2019-04-15] MEDS: PREGABALIN 75 MG CAP PO SCH ×3 (06:02→21:58)
[2019-04-15 07:46] VITALS: BP 171/72; PULSE 74; RESP 16
[2019-04-15] MEDS: POLYETHYLENE GLYCOL 17 GM PACKET PO SCH (08:52)
[2019-04-15] MEDS: ALBUTEROL HFA 8 GM INHALER INH SCH ×3 (08:53→21:57)
[2019-04-15] MEDS: NITROFURANTOIN (SR) 100 MG CAP PO SCH ×2 (08:54→21:57)
[2019-04-15] MEDS: glipiZIDE (XL) 5 MG TAB PO SCH (08:55)
[2019-04-15] MEDS: PAROXETINE (CR) 12.5 MG TAB PO SCH (08:55)
[2019-04-15] MEDS: NIFEdipine (XL) 30 MG TAB PO SCH ×2 (08:55→21:00)
[2019-04-15] MEDS: SOLIFENACIN 5 MG TAB PO SCH (08:56)
[2019-04-15] MEDS: metFORMIN 500 MG TAB PO SCH ×2 (08:56→17:38)
[2019-04-15] MEDS: DOCUSATE SODIUM 100 MG CAP PO SCH ×2 (08:57→21:58)
[2019-04-15] MEDS: BACLOFEN 10 MG TAB PO SCH ×3 (08:57→21:57)
[2019-04-15] MEDS: LINAGLIPTIN 5 MG TABLET PO SCH (08:58)
[2019-04-15] MEDS: ASPIRIN 81 MG TAB PO SCH (08:58)
[2019-04-15] MEDS: FUROSEMIDE 20 MG TAB PO SCH (08:58)
[2019-04-15] MEDS: SPIRONOLACTONE 25 MG TAB PO SCH (08:58)
[2019-04-15] MEDS: LOSARTAN 50 MG TAB PO SCH (08:58)
[2019-04-15] MEDS: NYSTATIN 30 GM POWDER BTL TOP SCH ×2 (08:59→21:58)
[2019-04-15] MEDS: ENOXAPARIN 40 MG/0.4 ML SYG SC SCH (09:01)
[2019-04-15] MEDS: FLUTICASONE/VILANTEROL 100-25 INH SCH (09:02)
[2019-04-15] MEDS: INSULIN ASPART [NOVOLOG] 3 ML PEN SC SCH ×4 (09:02→21:00)
[2019-04-15] MEDS: PANTOPRAZOLE (EC) 40 MG TAB PO SCH (09:07)
[2019-04-15] MEDS: LABETALOL 200 MG TAB PO SCH ×3 (09:13→21:00)
--- NOTE | 2019-04-15 11:44 | CONS ---
Consult Date/Type/Reason Admit Date/Time Apr 08, 2019 at 05:32 Initial Consult Date Requesting Provider: RAQUEL DOWNING MD Date/Time of Note DATE: 04/15/19 TIME: 11:37 Subjective 59-year-old female with a past medical history of previous CVA, history of chronic pain syndrome, history of right iliotibial band syndrome, chronic neuropathic pain, history of left-sided paresis, hyperlipidemia, diabetes type 2, obstructive sleep apnea, depression, coronary artery, history of asthma, hypertension, obesity, and chronic headaches. The patient presents from home after having a fall yesterday, unable to manage the amount of pain that she is having. The patient has noted since her previous admission to the acute rehab, a progressive decline in her physical function. Unclear if she had further neurologic disease. The patient complains of pain similar to her iliotibial ba nd syndrome. The patient is being managed by an outpatient pain management doctor for her chronic pain. No recent changes to any of her medications. Known to have leukocytosis. X-rays were negative. noted some encephalopathy possibly related to meds and poss uti notes anxiety. noted poss aphasia episodic. had carotid showing 50-70% ica L lesion. DW dr. ott. cta limited by motion but no significant lesion noted. noted facial rash REVIEW OF SYSTEMS: A 14-point review of systems attempted and negative. PHYSICAL EXAMINATION: HEENT: Normocephalic, atraumatic. Pupils equal, round, and reactive to light. Oropharynx shows moist mucous membranes. macular lesion on angle of face. no s attelites NECK: Supple. HEART: Regular rate and rhythm. LUNGS: Clear to auscultation. ABDOMEN: Soft, nontender, and nondistended. Normoactive bowel sounds. EXTREMITIES: No clubbing, cyanosis, or edema. SKIN: Shows no rashes. BACK: Some point tenderness. HIP: Shows tenderness around the right thigh. Objective Vitals Vital Signs Date Temp Pulse Resp B/P (MAP) Pulse Ox O2 O2 Flow FiO2 Time Delivery Rate 04/15/19 98.1 74 16 171/72 96 07:46 (105) 04/12/19 Room Air 13:10 Intake and Output 04/14/19 04/14/19 04/15/19 1515:00 23:00 07:00 IntakeIntake Total 1840 ml 560 ml 240 ml BalanceBalance 1840 ml 560 ml 240 ml Results/Medications Result Diagram: 04/13/19 1213 04/13/19 1213 Results 24 hrs Laboratory Tests Test 04/14/19 12:37 04/14/19 18:00 04/14/19 20:21 04/14/19 21:51 Bedside Glucose 135 174 192 202 Test 04/15/19 02:38 04/15/19 08:41 Bedside Glucose 211 181 Home Meds Reported Medications Sitagliptin Phos-Metformin Hcl (Janumet XR) 100-1,000 Mg Tbmp.24hr, 1 TAB PO WITH DINNER, #30 TAB 04/08/19 Psyllium Husk/Calcium Carb (Metamucil Plus Calcium Capsule) 1 Each Capsule, 2 EACH PO DAILY, CAP 04/08/19 Docusate Sodium* (Colace*) 100 Mg Capsule, 100 MG PO BID, #60 CAP 04/08/19 Aspirin* (Aspirin*) 325 Mg Tablet, 81 MG PO QID PRN for PAIN, TAB 04/08/19 Acetaminophen* (Tylophen*) 500 Mg Capsule, 650 MG PO Q6H PRN for PAIN LEVEL 1-3, TAB 04/08/19 Salmeterol Xinaf-Fluticasone* (Advair HFA*) 230/12 Aerosol Inhaler, 2 INH IH BID, #1 INHALER 04/08/19 Albuterol Sulfate* (Proair HFA*) 8.5 Gm Hfa.aer.ad, 2 PUFF INH TID, #1 INHALER 04/08/19 Hydromorphone Hcl* (Hydromorphone Hcl*) 4 Mg Tablet, 4 MG PO Q6 PRN for PAIN, TAB 04/08/19 Pregabalin* (Lyrica*) 75 Mg Capsule, 75 MG PO QHS, CAP 04/08/19 Pregabalin* (Lyrica*) 50 Mg Capsule, 50 MG PO DAILY, CAP 04/08/19 Baclofen* (Baclofen*) 20 Mg Tablet, 20 MG PO TID, TAB 04/08/19 Solifenacin* (Vesicare*) 10 Mg Tablet, 10 MG PO DAILY, TAB 04/08/19 Pantoprazole* (Protonix*) 40 Mg Tablet.dr, 40 MG PO DAILY, TAB 04/08/19 Atorvastatin* (Atorvastatin*) 40 Mg Tablet, 40 MG PO QHS, #30 TAB 04/08/19 Spironolactone* (Aldactone*) 25 Mg Tablet, 25 MG PO DAILY, #30 TAB 04/08/19 Labetalol Hcl* (Labetalol Hcl*) 200 Mg Tablet, 400 MG PO TID, TAB 04/08/19 Losartan Potassium* (Cozaar*) 100 Mg Tablet, 100 MG PO DAILY, #30 TAB 04/08/19 Hydralazine Hcl* (Hydralazine Hcl*) 10 Mg Tablet, 10 MG PO BID, #120 TAB 04/08/19 Nifedipine* (Nifedipine ER*) 60 Mg Tablet.sa, 60 MG PO BID, TAB.SA 04/08/19 Glipizide* (Glipizide*) 5 Mg Tablet, 25 MG PO BID, TAB 04/08/19 Medications Current Medications Hydromorphone HCl (Dilaudid) 4 mg Q4H PRN PO SEVERE PAIN LEVEL 7-10 Last administered on 04/15/19at 10:50; Admin Dose 4 MG; Start 04/08/19 at 08:00 Hydromorphone HCl (Dilaudid) 1 mg Q4H PRN IV SEVERE PAIN LEVEL 7-10 Last administered on 04/14/19at 03:36; Admin Dose 1 MG; Start 04/08/19 at 08:00 IV Flush (NS 3 ml) 3 ml PER PROTOCOL IV ; Start 04/08/19 at 11:30 Docusate Sodium (Colace) 100 mg Q12H PRN PO .CONSTIPATION; Start 04/08/19 at 11:30 Enoxaparin Sodium (Lovenox) 40 mg DAILY SC Last administered on 04/15/19at 09:01; Admin Dose 40 MG; Start 04/09/19 at 09:00 Diagnostic Test (Pha) (Accu-Chek) 1 ea 02 XX Last administered on 04/09/19at 01:48; Admin Dose 1 EA; Start 04/09/19 at 02:00 Insulin Aspart (Novolog Insulin Pen) NOVOLOG *MILD* ALGORITHM WITH MEALS BEDTIME SC Last administered on 04/15/19at 09:02; Admin Dose 2 UNIT; Start 04/08/19 at 18:00 Miscellaneous Information 1 ea NOTE XX ; Start 04/08/19 at 17:30 Glucose (Glutose) 15 gm Q15M PRN PO DECREASED GLUCOSE; Start 04/08/19 at 17:30 Glucose (Glutose) 22.5 gm Q15M PRN PO DECREASED GLUCOSE; Start 04/08/19 at 17:30 Dextrose (D50w Syringe) 25 ml Q15M PRN IV DECREASED GLUCOSE; Start 04/08/19 at 17:30 Dextrose (D50w Syringe) 50 ml Q15M PRN IV DECREASED GLUCOSE; Start 04/08/19 at 17:30 Glucagon (Glucagen) 1 mg Q15M PRN IM DECREASED GLUCOSE; Start 04/08/19 at 17:30 Glucose (Glutose) 15 gm Q15M PRN BUCCAL DECREASED GLUCOSE; Start 04/08/19 at 1 7:30 Albuterol (Ventolin Hfa) 2 puff TID INH Last administered on 04/15/19 08:53; Admin Dose 2 PUFF; Start 04/08/19 at 21:00 Aspirin (Aspirin) 81 mg DAILY PO Last administered on 04/15/19 08:58; Admin Dose 81 MG; Start 04/09/19 at 09:00 Atorvastatin Calcium (Lipitor) 40 mg QHS PO Last administered on 04/14/19 20:19; Admin Dose 40 MG; Start 04/08/19 at 21:00 Baclofen (Lioresal) 20 mg TID PO Last administered on 04/15/19 08:57; Admin Dose 20 MG; Start 04/08/19 at 21:00 Docusate Sodium (Colace) 100 mg BID PO Last administered on 04/15/19 08:57; Admin Dose 100 MG; Start 04/08/19 at 21:00 Hydralazine HCl (Apresoline) 10 mg BID PO Last administered on 04/15/19 08:56; Admin Dose 10 MG; Start 04/08/19 at 21:00 Labetalol HCl (Normodyne) 400 mg TID PO Last administered on 04/15/19 09:13; Admin Dose 400 MG; Start 04/08/19 at 21:00 Losartan Potassium (Cozaar) 100 mg DAILY PO Last administered on 04/15/19 08:58; Admin Dose 100 MG; Start 04/09/19 at 09:00 Pantoprazole (Protonix Tab) 40 mg DAILY PO Last administered on 04/15/19 09:07; Admin Dose 40 MG; Start 04/09/19 at 09:00 Solifenacin (Vesicare) 10 mg DAILY PO Last administered on 04/15/19 08:56; Admin Dose 10 MG; Start 04/09/19 at 09:00 Spironolactone (Aldactone) 25 mg DAILY PO Last administered on 04/15/19 08:58; Admin Dose 25 MG; Start 04/09/19 at 09:00 Linagliptin (Tradjenta) 5 mg DAILY PO Last administered on 04/15/19 08:58; Admin Dose 5 MG; Start 04/09/19 at 09:00 Nitrofurantoin Macrocrystals (Macrobid) 100 mg BID PO Last administered on 04/15/19 08:54; Admin Dose 100 MG; Start 04/10/19 at 11:00 Nifedipine (Procardia Xl) 30 mg BID PO Last administered on 04/15/19 08:55; Admin Dose 30 MG; Start 04/10/19 at 21:00 Furosemide (Lasix) 20 mg DAILY PO Last administered on 04/15/19 08:58; Admin Dose 20 MG; Start 04/11/19 at 09:00 Acetaminophen (Tylenol Tab) 650 mg Q6H PRN PO MILD PAIN(1-3)OR ELEVATED TEMP Last administered on 04/15/19 04:56; Admin Dose 650 MG; Start 04/10/19 at 11:00 Polyethylene Glycol (Miralax) 17 gm DAILY PO Last administered on 04/15/19 08:52; Admin Dose 17 GM; Start 04/11/19 at 09:00 Metformin HCl (Glucophage) 1,000 mg BID WITH MEALS PO Last administered on 04/15/19 08:56; Admin Dose 1,000 MG; Start 04/13/19 at 18:00 Paroxetine HCl (Paxil Cr) 37.5 mg DAILY PO Last administered on 04/15/19 08:55; Admin Dose 37.5 MG; Start 04/14/19 at 09:00 Glipizide (Glucotrol Xl) 5 mg DAILY PO Last administered on 04/15/19 08:55; Admin Dose 5 MG; Start 04/13/19 at 13:30 Fluticasone/ Vilanterol (Breo Ellipta 100-25 Mcg Inh) 1 inh DAILY INH Last administered on 04/15/19 09:02; Admin Dose 1 INH; Start 04/13/19 at 13:30 Hydralazine HCl (Apresoline) 25 mg Q6H PRN PO sbp>160 Last administered on 04/15/19 04:56; Admin Dose 25 MG; Start 04/13/19 at 12:00 Pregabalin (Lyrica) 75 mg Q8 PO Last administered on 04/15/19 06:02; Admin Dose 75 MG; Start 04/14/19 at 14:00 Nystatin (Nystatin Powder) 1 applic BID TOP Last administered on 04/15/19 08:59; Admin Dose 1 APPLIC; Start 04/14/19 at 15:00 Assessment/Plan Hospital Course (Demo Recall) 1. Acute exacerbation of the iliotibial band syndrome, status post fall; pain out of proportion, but the patient suffers from multiple different pain pathologies, previously well-managed by pain management doctor when she was here in this hospital by Dr. Faye in the ARU. We will recommend physical therapy. Neurology consult. ARU evaluation, may need to go back to outpatient pain management if does not qualify. 2. Anemia. 3. Status post fall with contusion. Will x-ray hips. 4. Progressive decline in function. Rule out other CVA, will check a CT of the head. neurology consultation 5. Frequent falls, doubt syncopal. May benefit from more aggressive physical therapy. Look for underlying cause. 6. History of asthma. Continue Advair and nebulizers p.r.n. 7. Diabetes. Continue regular medications. increase metformin 8. Hypertension. Continue regular medications. Monitor labs. 9. History of previous cerebrovascular accident. Medication optimized. 10. encephalopathy- transient. may be toxic from meds or uti. avoid sedatives. neuro consult appreciate. unchanged ct head. noted carotid duplex result. being worked up 11. uti- k pneumonia. pansensitive. started macrobid. 12. aphasia- transient. ro tia. neuro fu. note L ICA lesion. appreciate vascul ar consult. add plavix. 13. likely shingles- start valtrex discharge planning. RAQUEL DOWNING MD Apr 15, 2019 11:44
[2019-04-15 14:21] VITALS: BP 130/60; PULSE 76; RESP 16
[2019-04-15] MEDS: valACYclovir 500 MG TAB PO SCH ×2 (14:56→21:57)
[2019-04-15 19:26] VITALS: BP 110/53; PULSE 62; RESP 16
[2019-04-15] MEDS: ATORVASTATIN 40 MG TAB PO SCH (21:57)
[2019-04-16] MEDS: HYDROmorphONE 4 MG TAB PO PRN ×5 (00:07→19:05)
[2019-04-16] MEDS: ACCU-CHEK XX SCH (01:45)
[2019-04-16 01:52] VITALS: BP 126/51; PULSE 65; RESP 16
[2019-04-16] MEDS: PREGABALIN 75 MG CAP PO SCH ×3 (05:36→21:41)
[2019-04-16 07:37] VITALS: BP 167/71; PULSE 70; RESP 20
[2019-04-16] MEDS: POLYETHYLENE GLYCOL 17 GM PACKET PO SCH (08:52)
[2019-04-16] MEDS: DOCUSATE SODIUM 100 MG CAP PO SCH ×2 (08:53→21:40)
[2019-04-16] MEDS: NITROFURANTOIN (SR) 100 MG CAP PO SCH ×2 (08:53→21:39)
[2019-04-16] MEDS: PANTOPRAZOLE (EC) 40 MG TAB PO SCH (08:53)
[2019-04-16] MEDS: PAROXETINE (CR) 12.5 MG TAB PO SCH (08:53)
[2019-04-16] MEDS: SOLIFENACIN 5 MG TAB PO SCH (08:53)
[2019-04-16] MEDS: metFORMIN 500 MG TAB PO SCH ×2 (08:54→17:55)
[2019-04-16] MEDS: SPIRONOLACTONE 25 MG TAB PO SCH (08:54)
[2019-04-16] MEDS: valACYclovir 500 MG TAB PO SCH ×3 (08:54→21:41)
[2019-04-16] MEDS: LINAGLIPTIN 5 MG TABLET PO SCH (08:54)
[2019-04-16] MEDS: ASPIRIN 81 MG TAB PO SCH (08:54)
[2019-04-16] MEDS: BACLOFEN 10 MG TAB PO SCH ×3 (08:55→21:39)
[2019-04-16] MEDS: LABETALOL 200 MG TAB PO SCH ×3 (08:55→21:40)
[2019-04-16] MEDS: NIFEdipine (XL) 30 MG TAB PO SCH ×2 (08:55→21:00)
[2019-04-16] MEDS: FUROSEMIDE 20 MG TAB PO SCH (08:56)
[2019-04-16] MEDS: glipiZIDE (XL) 5 MG TAB PO SCH (08:56)
[2019-04-16] MEDS: NYSTATIN 30 GM POWDER BTL TOP SCH ×2 (08:57→21:39)
[2019-04-16] MEDS: ALBUTEROL HFA 8 GM INHALER INH SCH ×3 (08:57→21:39)
[2019-04-16] MEDS: LOSARTAN 50 MG TAB PO SCH (08:57)
[2019-04-16] MEDS: FLUTICASONE/VILANTEROL 100-25 INH SCH (08:57)
[2019-04-16] MEDS: INSULIN ASPART [NOVOLOG] 3 ML PEN SC SCH ×4 (08:59→21:00)
[2019-04-16] MEDS: ENOXAPARIN 40 MG/0.4 ML SYG SC SCH (09:00)
--- NOTE | 2019-04-16 09:09 | PN ---
DATE: 04/16/2019 SUBJECTIVE: The patient is stable, states her pain is improving. The patient is pending evaluation for possible transfer to continue acute rehabilitation. No other events noted. OBJECTIVE: VITAL SIGNS: Blood pressure is 131/72, pulse 76, respirations 20, temperature 98.6. HEENT: Head is normocephalic. NECK: Supple. HEART: Regular rate. LUNGS: Show diminished breath sounds at the base. ABDOMEN: Soft, nontender to palpation. No rebound or guarding. EXTREMITIES: Negative for clubbing, cyanosis, or edema. DERMATOLOGIC: No rashes. NEUROLOGIC: No change in exam. MEDICATIONS: Have been reviewed. LABORATORY DATA: Have been reviewed. IMAGING STUDIES: Have been reviewed. ASSESSMENT AND PLAN: 1. Status post fall with contusion, possible iliotibial band syndrome. The patient's pain regimen h as been adjusted. The patient is pending evaluation for acute rehabilitation. We will discuss with the [facility] acute rehabilitation. If the [facility] acute rehab does not accept the patient, will attempt [place]. Continue current pain regimen. Continue physical therapy. 2. Anemia. Monitor hemoglobin and hematocrit. 3. Status post confusion. Continue to monitor. 4. Recurrent falls. Continue physical therapy. 5. History of asthma. Continue Advair nebulizer. 6. Diabetes. Continue current insulin regimen. Adjust medications as needed. 7. Hypertension. Continue current blood pressure regimen. Adjust medications. 8. History of cerebrovascular accident. Continue current treatment plan. 9. Encephalopathy, toxic metabolic, improved. Continue to monitor. 10. Urinary tract infection. Continue current antibiotic regimen. 11. Possible transient ischemic attack. Continue to monitor. Appreciate neurology's evaluation. 12. Questionable shingles. Continue Valtrex. 13. Carotid artery stenosis. The patient was seen by vascular surgery, no plans for intervention. DISCHARGE PLANNING: To acute rehab. Dictated By: HENRRY PIEDRA DO NR/NTS Conf#: [id number] DID#: [id number] CC: RAQUEL DOWNING MD;*EndCC*
[2019-04-16 14:00] VITALS: BP 143/65; PULSE 81; RESP 18
[2019-04-16 19:26] VITALS: BP 127/58; PULSE 64; RESP 18
[2019-04-16] MEDS: ATORVASTATIN 40 MG TAB PO SCH (21:40)
[2019-04-17] MEDS: ACCU-CHEK XX SCH (01:50)
[2019-04-17 02:00] VITALS: BP 152/66; PULSE 67; RESP 18
[2019-04-17] MEDS: HYDROmorphONE 4 MG TAB PO PRN ×5 (02:08→22:57)
[2019-04-17] MEDS: PREGABALIN 75 MG CAP PO SCH ×3 (06:30→20:35)
--- NOTE | 2019-04-17 07:01 | PN ---
DATE: 04/17/2019 SUBJECTIVE: The patient is stable. The patient's pain is present but improving. Blood pressures ar e improving. No other events noted. OBJECTIVE: VITAL SIGNS: Blood pressure is 127/58, respiration 18, pulse 64, temperature 97.9. HEENT: Head is normocephalic. NECK: Supple. HEART: Regular rate. LUNGS: Show diminished breath sounds at the base. ABDOMEN: Soft, nontender to palpation without rebound or guarding. EXTREMITIES: Negative for clubbing, cyanosis, no edema. DERMATOLOGIC: No rashes. MUSCULOSKELETAL: No joint effusion. NEUROLOGIC: No change in exam. MEDICATIONS: Have been reviewed. LABORATORY DATA: Has been reviewed. IMAGING STUDIES: Have been reviewed. ASSESSMENT AND PLAN: 1. Status post fall with contusion, possible iliotibial band syndrome. The patient's pain regimen h as been adjusted. Currently stable. The patient is pending transfer to acute rehab, possible [place] versus [facility]. If acute rehab is not available, the patient will likely need to be tra nsferred to a SNF. Otherwise, continue current pain regimen. Continue physical therapy. 2. Anemia. Hemoglobin has been stable. Continue to monitor. 3. History of recent falls. Continue physical therapy. 4. History of asthma. Continue medical management. 5. Diabetes. Continue current insulin regimen. 6. Hypertension. Blood pressure controlled. Continue current blood pressure regimen. 7. History of cerebrovascular accident. Continue medical management. 8. Encephalopathy, improved. 9. Urinary tract infection. The patient is completing antibiotic course. 10. Questionable shingles. Patient remains on Valtrex, completing course. 11. Coronary artery stenosis. The patient was seen by vascular surgery, nonsignificant stenosis not ed. No plan for intervention. 12. Dyslipidemia. Continue statin therapy. 13. Gastrointestinal and deep vein thrombosis prophylaxis. Dictated By: HENRRY PIEDRA DO NR/NTS Conf#: [id number] DID#: [id number] CC: RAQUEL DOWNING MD;*EndCC*
[2019-04-17 07:30] VITALS: BP 155/67; PULSE 63; RESP 20
[2019-04-17] MEDS: INSULIN ASPART [NOVOLOG] 3 ML PEN SC SCH ×5 (07:58→21:00)
[2019-04-17] MEDS: SOLIFENACIN 5 MG TAB PO SCH (07:59)
[2019-04-17] MEDS: PANTOPRAZOLE (EC) 40 MG TAB PO SCH (07:59)
[2019-04-17] MEDS: metFORMIN 500 MG TAB PO SCH ×2 (08:00→16:45)
[2019-04-17] MEDS: PAROXETINE (CR) 12.5 MG TAB PO SCH (08:00)
[2019-04-17] MEDS: NIFEdipine (XL) 30 MG TAB PO SCH ×2 (08:01→20:31)
[2019-04-17] MEDS: LABETALOL 200 MG TAB PO SCH ×3 (08:01→20:32)
[2019-04-17] MEDS: POLYETHYLENE GLYCOL 17 GM PACKET PO SCH (08:01)
[2019-04-17] MEDS: DOCUSATE SODIUM 100 MG CAP PO SCH ×2 (08:01→20:30)
[2019-04-17] MEDS: ASPIRIN 81 MG TAB PO SCH (08:01)
[2019-04-17] MEDS: FUROSEMIDE 20 MG TAB PO SCH (08:02)
[2019-04-17] MEDS: glipiZIDE (XL) 5 MG TAB PO SCH (08:02)
[2019-04-17] MEDS: valACYclovir 500 MG TAB PO SCH ×3 (08:03→20:30)
[2019-04-17] MEDS: LOSARTAN 50 MG TAB PO SCH (08:03)
[2019-04-17] MEDS: BACLOFEN 10 MG TAB PO SCH ×3 (08:03→20:30)
[2019-04-17] MEDS: LINAGLIPTIN 5 MG TABLET PO SCH (08:03)
[2019-04-17] MEDS: ENOXAPARIN 40 MG/0.4 ML SYG SC SCH (08:14)
[2019-04-17] MEDS: SPIRONOLACTONE 25 MG TAB PO SCH (08:19)
[2019-04-17] MEDS: NITROFURANTOIN (SR) 100 MG CAP PO SCH (08:41)
[2019-04-17] MEDS: FLUTICASONE/VILANTEROL 100-25 INH SCH (08:42)
[2019-04-17] MEDS: NYSTATIN 30 GM POWDER BTL TOP SCH ×2 (08:42→20:32)
[2019-04-17] MEDS: ALBUTEROL HFA 8 GM INHALER INH SCH ×3 (08:42→20:32)
[2019-04-17] MEDS: ACETAMINOPHEN 325 MG TAB PO PRN (11:06)
[2019-04-17 14:58] VITALS: BP 102/56; PULSE 64; RESP 20
[2019-04-17 19:44] VITALS: BP 109/53; PULSE 66; RESP 18
[2019-04-17 20:30] VITALS: BP 119/58; PULSE 65
[2019-04-17] MEDS: ATORVASTATIN 40 MG TAB PO SCH (20:30)
[2019-04-18 01:32] VITALS: BP 138/63; PULSE 65; RESP 18
[2019-04-18] MEDS: ACCU-CHEK XX SCH (02:00)
[2019-04-18] MEDS: HYDROmorphONE 4 MG TAB PO PRN ×5 (03:18→20:26)
[2019-04-18] MEDS: PREGABALIN 75 MG CAP PO SCH ×3 (05:50→22:24)
[2019-04-18 07:42] VITALS: PULSE 65; RESP 16
[2019-04-18] MEDS: INSULIN ASPART [NOVOLOG] 3 ML PEN SC SCH ×4 (08:00→21:00)
[2019-04-18] MEDS: POLYETHYLENE GLYCOL 17 GM PACKET PO SCH (08:18)
[2019-04-18] MEDS: NYSTATIN 30 GM POWDER BTL TOP SCH ×2 (08:19→20:28)
[2019-04-18] MEDS: PAROXETINE (CR) 12.5 MG TAB PO SCH (08:19)
[2019-04-18] MEDS: SPIRONOLACTONE 25 MG TAB PO SCH (08:20)
[2019-04-18] MEDS: metFORMIN 500 MG TAB PO SCH ×2 (08:20→17:21)
[2019-04-18] MEDS: valACYclovir 500 MG TAB PO SCH ×3 (08:20→20:26)
[2019-04-18] MEDS: PANTOPRAZOLE (EC) 40 MG TAB PO SCH (08:20)
[2019-04-18] MEDS: NIFEdipine (XL) 30 MG TAB PO SCH ×2 (08:20→20:25)
[2019-04-18] MEDS: LOSARTAN 50 MG TAB PO SCH (08:20)
[2019-04-18] MEDS: glipiZIDE (XL) 5 MG TAB PO SCH (08:20)
[2019-04-18] MEDS: ASPIRIN 81 MG TAB PO SCH (08:20)
[2019-04-18] MEDS: BACLOFEN 10 MG TAB PO SCH ×3 (08:21→20:26)
[2019-04-18] MEDS: DOCUSATE SODIUM 100 MG CAP PO SCH ×2 (08:21→20:26)
[2019-04-18] MEDS: SOLIFENACIN 5 MG TAB PO SCH (08:22)
[2019-04-18] MEDS: FUROSEMIDE 20 MG TAB PO SCH (08:22)
[2019-04-18] MEDS: LINAGLIPTIN 5 MG TABLET PO SCH (08:22)
[2019-04-18] MEDS: LABETALOL 200 MG TAB PO SCH ×3 (08:22→20:25)
[2019-04-18] MEDS: ENOXAPARIN 40 MG/0.4 ML SYG SC SCH (08:23)
[2019-04-18] MEDS: ALBUTEROL HFA 8 GM INHALER INH SCH ×3 (08:23→20:27)
[2019-04-18] MEDS: FLUTICASONE/VILANTEROL 100-25 INH SCH (08:24)
--- NOTE | 2019-04-18 12:10 | PN ---
DATE: 04/18/2019 SUBJECTIVE: The patient is stable, no events overnight. I spoke with the patient, she is requesting to be placed on Eliquis instead of aspirin and Plavix. I informed the patient I will discuss the ca se with neurology. No other events noted. OBJECTIVE: VITAL SIGNS: Blood pressure 155/67, pulse 86, respirations 20, temperature 98.4. HEENT: Head is normocephalic. NECK: Supple. HEART: Regular rate. LUNGS: Show diminished breath sounds at the base. ABDOMEN: Soft, nontender to palpation without rebound or guarding. EXTREMITIES: Negative for clubbing, cyanosis, no edema. DERMATOLOGIC: No rashes. MUSCULOSKELETAL: No joint effusion. NEUROLOGIC: No change in exam. MEDICATIONS: Have been reviewed. LABORATORY DATA: Have been reviewed. IMAGING STUDIES: Have been reviewed. ASSESSMENT AND PLAN: 1. Status post fall with contusion, questionable possible iliotibial band syndrome. The patient's p ain regimen has been adjusted. Currently stable pending transfer to acute rehab in [place]. Continue to monitor. 2. Anemia. Monitor hemoglobin and hematocrit levels. 3. Asthma. Continue medical management. 4. Diabetes. Continue current insulin regimen. The patient's metformin was adjusted, sliding scale was adjusted. 5. Hypertension. Blood pressure controlled. Continue current blood pressure regimen. 6. History of cerebrovascular accident. Continue medical management. The patient is currently on a spirin. Will discuss with neurology if the patient is a candidate for Eliquis. 7. Urinary tract infection. Continue the patient's antibiotic course. 8. Questionable shingles. The patient is completing course of Valtrex. 9. Coronary artery stenosis. The patient was seen by vascular surgery no significant stenosis. No indication for intervention at this time. 10. Gastrointestinal and deep venous thrombosis prophylaxis. Dictated By: HENRRY PIEDRA DO NR/NTS Conf#: [id number] DID#: [id number] CC: RAQUEL DOWNING MD;*EndCC*
[2019-04-18 12:18] VITALS: BP 105/52
[2019-04-18 12:19] VITALS: PULSE 63
--- NOTE | 2019-04-18 13:50 | CONS ---
Assessment/Plan Assessment/Plan Assessment/Plan (Recall) 59 F c/ Hx of stroke and other comorbidities, who presents for evaluation of scattered pains s/p recurrent fall. Labs suggest a UTI, which could certainly predispose to an unsteady gait.. She notably has diffuse and chronic pain...requiring daily dilaudid, lyrica, etc. There is perhaps a superimposed acute post-traumatic component; this should wang with time. Regarding her chronic headache syndrome in particular, she may be a candidate for Topamax prophylaxis given its migrainous quality...but wants to consider the option more in advance of its initiation.. P: Agree w/ asa/lipitor daily for secondary stroke prevention Consider the addition of an NSAID in the short term, as medically able UTI and other medical management per primary PT/OT as tolerated Consider Topamax in the future for headache prophylaxis, should patient agree Will follow Consultation Date/Type/Reason Admit Date/Time Apr 08, 2019 at 05:32 Type of Consult Neurology Reason for Consultation pain s/p fall Requesting Provider: RAQUEL DOWNING MD Date/Time of Note DATE: 04/18/19 TIME: 13:47 24 HR Interval Summary Free Text/Dictation Wants to know about transition to eliquis Exam/Review of Systems Exam Vitals Vital Signs Date Temp Pulse Resp B/P (MAP) Pulse Ox O2 O2 Flow FiO2 Time Delivery Rate 04/18/19 63 12:19 04/18/19 105/52 12:18 (69) 04/18/19 98.0 16 95 07:42 04/16/19 Room Air 14:00 Intake and Output 04/17/19 04/17/19 04/18/19 1515:00 23:00 07:00 IntakeIntake Total 520 ml 1240 ml OutputOutput Total 1100 ml BalanceBalance -580 ml 1240 ml Results Result Diagram: 04/17/19 0435 04/17/19 0435 Results 24hrs Laboratory Tests Test 04/17/19 16:44 04/17/19 20:34 04/18/19 08:11 04/18/19 12:15 Bedside Glucose 134 97 130 161 Medications Medication Current Medications Hydromorphone HCl (Dilaudid) 4 mg Q4H PRN PO SEVERE PAIN LEVEL 7-10 Last administered on 04/18/19at 11:49; Admin Dose 4 MG; Start 04/08/19 at 08:00 Hydromorphone HCl (Dilaudid) 1 mg Q4H PRN IV SEVERE PAIN LEVEL 7-10 Last administered on 04/14/19at 03:36; Admin Dose 1 MG; Start 04/08/19 at 08:00 IV Flush (NS 3 ml) 3 ml PER PROTOCOL IV ; Start 04/08/19 at 11:30 Docusate Sodium (Colace) 100 mg Q12H PRN PO .CONSTIPATION; Start 04/08/19 at 11:30 Enoxaparin Sodium (Lovenox) 40 mg DAILY SC Last administered on 04/18/19at 08:23; Admin Dose 40 MG; Start 04/09/19 at 09:00 Diagnostic Test (Pha) (Accu-Chek) 1 ea 02 XX Last administered on 04/09/19at 01:48; Admin Dose 1 EA; Start 04/09/19 at 02:00 Miscellaneous Information 1 ea NOTE XX ; Start 04/08/19 at 17:30 Glucose (Glutose) 15 gm Q15M PRN PO DECREASED GLUCOSE; Start 04/08/19 at 17:30 Glucose (Glutose) 22.5 gm Q15M PRN PO DECREASED GLUCOSE; Start 04/08/19 at 17:30 Dextrose (D50w Syringe) 25 ml Q15M PRN IV DECREASED GLUCOSE; Start 04/08/19 at 17:30 Dextrose (D50w Syringe) 50 ml Q15M PRN IV DECREASED GLUCOSE; Start 04/08/19 at 17:30 Glucagon (Glucagen) 1 mg Q15M PRN IM DECREASED GLUCOSE; Start 04/08/19 at 17:30 Glucose (Glutose) 15 gm Q15M PRN BUCCAL DECREASED GLUCOSE; Start 04/08/19 at 17:30 Albuterol (Ventolin Hfa) 2 puff TID INH Last administered on 04/18/19at 13:27; Admin Dose 2 PUFF; Start 04/08/19 at 21:00 Aspirin (Aspirin) 81 mg DAILY PO Last administered on 04/18/19at 08:20; Admin Dose 81 MG; Start 04/09/19 at 09:00 Atorvastatin Calcium (Lipitor) 40 mg QHS PO Last administered on 04/17/19at 20:30; Admin Dose 40 MG; Start 04/08/19 at 21:00 Baclofen (Lioresal) 20 mg TID PO Last administered on 04/18/19 13:25; Admin Dose 20 MG; Start 04/08/19 at 21:00 Docusate Sodium (Colace) 100 mg BID PO Last administered on 04/18/19 08:21; Admin Dose 100 MG; Start 04/08/19 at 21:00 Hydralazine HCl (Apresoline) 10 mg BID PO Last administered on 04/18/19 08:21; Admin Dose 10 MG; Start 04/08/19 at 21:00 Labetalol HCl (Normodyne) 400 mg TID PO Last administered on 04/18/19 13:26; Admin Dose 400 MG; Start 04/08/19 at 21:00 Losartan Potassium (Cozaar) 100 mg DAILY PO Last administered on 04/18/19 08:20; Admin Dose 100 MG; Start 04/09/19 at 09:00 Pantoprazole (Protonix Tab) 40 mg DAILY PO Last administered on 04/18/19 08:20; Admin Dose 40 MG; Start 04/09/19 at 09:00 Solifenacin (Vesicare) 10 mg DAILY PO Last administered on 04/18/19 08:22; Admin Dose 10 MG; Start 04/09/19 at 09:00 Spironolactone (Aldactone) 25 mg DAILY PO Last administered on 04/18/19 08:20; Admin Dose 25 MG; Start 04/09/19 at 09:00 Linagliptin (Tradjenta) 5 mg DAILY PO Last administered on 04/18/19 08:22; Admin Dose 5 MG; Start 04/09/19 at 09:00 Nifedipine (Procardia Xl) 30 mg BID PO Last administered on 04/18/19 08:20; Admin Dose 30 MG; Start 04/10/19 at 21:00 Furosemide (Lasix) 20 mg DAILY PO Last administered on 04/18/19 08:22; Admin Dose 20 MG; Start 04/11/19 at 09:00 Acetaminophen (Tylenol Tab) 650 mg Q6H PRN PO MILD PAIN(1-3)OR ELEVATED TEMP Last administered on 04/17/19 11:06; Admin Dose 650 MG; Start 04/10/19 at 11:00 Polyethylene Glycol (Miralax) 17 gm DAILY PO Last administered on 04/18/19 08:18; Admin Dose 17 GM; Start 04/11/19 at 09:00 Paroxetine HCl (Paxil Cr) 37.5 mg DAILY PO Last administered on 04/18/19 08:19; Admin Dose 37.5 MG; Start 04/14/19 at 09:00 Glipizide (Glucotrol Xl) 5 mg DAILY PO Last administered on 04/18/19 08:20; Admin Dose 5 MG; Start 04/13/19 at 13:30 Fluticasone/ Vilanterol (Breo Ellipta 100-25 Mcg Inh) 1 inh DAILY INH Last administered on 04/18/19 08:24; Admin Dose 1 INH; Start 04/13/19 at 13:30 Hydralazine HCl (Apresoline) 25 mg Q6H PRN PO sbp>160 Last administered on 04/15/19 04:56; Admin Dose 25 MG; Start 04/13/19 at 12:00 Pregabalin (Lyrica) 75 mg Q8 PO Last administered on 04/18/19 13:25; Admin Dose 75 MG; Start 04/14/19 at 14:00 Nystatin (Nystatin Powder) 1 applic BID TOP Last administered on 04/18/19 08:19; Admin Dose 1 APPLIC; Start 04/14/19 at 15:00 Valacyclovir HCl (Valtrex) 1,000 mg TID PO Last administered on 04/18/19 13:25; Admin Dose 1,000 MG; Start 04/15/19 at 13:00 Metformin HCl (Glucophage) 500 mg BID WITH MEALS PO Last administered on 04/18/19 08:20; Admin Dose 500 MG; Start 04/18/19 at 08:00 Insulin Aspart (Novolog Insulin Pen) NOVOLOG *MODERATE* ALGORITHM WITH MEALS BEDTIME SC Last administered on 04/18/19 12:17; Admin Dose 2 UNIT; Start 04/17/19 at 21:00 LAURA VOGEL Apr 18, 2019 13:50
[2019-04-18 13:59] VITALS: BP 129/60; PULSE 64; RESP 16
[2019-04-18 19:37] VITALS: BP 136/61; PULSE 65; RESP 18
[2019-04-18] MEDS: ATORVASTATIN 40 MG TAB PO SCH (20:24)
[2019-04-19] MEDS: HYDROmorphONE 4 MG TAB PO PRN ×6 (00:25→21:51)
[2019-04-19 01:23] VITALS: BP 148/69; PULSE 70; RESP 18
[2019-04-19] MEDS: ACCU-CHEK XX SCH (01:56)
[2019-04-19] MEDS: PREGABALIN 75 MG CAP PO SCH ×3 (06:27→21:51)
[2019-04-19 07:51] VITALS: BP 131/57; PULSE 65; RESP 16
[2019-04-19] MEDS: INSULIN ASPART [NOVOLOG] 3 ML PEN SC SCH ×4 (08:00→21:00)
[2019-04-19] MEDS: NYSTATIN 30 GM POWDER BTL TOP SCH ×2 (08:34→21:52)
[2019-04-19] MEDS: ALBUTEROL HFA 8 GM INHALER INH SCH ×3 (08:35→21:52)
[2019-04-19] MEDS: PANTOPRAZOLE (EC) 40 MG TAB PO SCH (08:35)
[2019-04-19] MEDS: FLUTICASONE/VILANTEROL 100-25 INH SCH (08:35)
[2019-04-19] MEDS: LINAGLIPTIN 5 MG TABLET PO SCH (08:35)
[2019-04-19] MEDS: ASPIRIN 81 MG TAB PO SCH (08:36)
[2019-04-19] MEDS: SOLIFENACIN 5 MG TAB PO SCH (08:36)
[2019-04-19] MEDS: glipiZIDE (XL) 5 MG TAB PO SCH (08:36)
[2019-04-19] MEDS: SPIRONOLACTONE 25 MG TAB PO SCH (08:36)
[2019-04-19] MEDS: PAROXETINE (CR) 12.5 MG TAB PO SCH (08:37)
[2019-04-19] MEDS: valACYclovir 500 MG TAB PO SCH ×3 (08:37→21:50)
[2019-04-19] MEDS: BACLOFEN 10 MG TAB PO SCH ×3 (08:37→21:51)
[2019-04-19] MEDS: POLYETHYLENE GLYCOL 17 GM PACKET PO SCH (08:38)
[2019-04-19] MEDS: metFORMIN 500 MG TAB PO SCH ×2 (08:38→17:38)
[2019-04-19] MEDS: DOCUSATE SODIUM 100 MG CAP PO SCH ×2 (08:38→21:50)
[2019-04-19] MEDS: LOSARTAN 50 MG TAB PO SCH (08:39)
[2019-04-19] MEDS: LABETALOL 200 MG TAB PO SCH ×3 (08:39→21:51)
[2019-04-19] MEDS: NIFEdipine (XL) 30 MG TAB PO SCH ×2 (08:39→21:51)
[2019-04-19] MEDS: FUROSEMIDE 20 MG TAB PO SCH (08:40)
[2019-04-19] MEDS: ENOXAPARIN 40 MG/0.4 ML SYG SC SCH (08:45)
--- NOTE | 2019-04-19 09:11 | PN ---
DATE: 04/19/2019 SUBJECTIVE: The patient is stable. I spoke yesterday with neurology. There is no active indication for Plavix or Eliquis. The patient also is requesting possible transfer to a SNF, [facility]. She does not wish to go to [facility] rehabilitation. OBJECTIVE: VITAL SIGNS: Blood pressure is 148/69, respiration 18, pulse 70, temperature 98.3. HEENT: Head is normocephalic. NECK: Supple. HEART: Regular rate. LUNGS: Show diminished breath sounds at the base. ABDOMEN: Soft, nontender to palpation without rebound or guarding. EXTREMITIES: Negative for clubbing, cyanosis, no edema. DERMATOLOGIC: No rashes. MUSCULOSKELETAL: No joint effusion. NEUROLOGIC: No change in exam. MEDICATIONS: The patient's medications have been reviewed. LABORATORY DATA: The laboratory data has been reviewed. IMAGING STUDIES: The imaging studies have been reviewed. ASSESSMENT AND PLAN: 1. Status post fall, possible iliotibial band syndrome. Continue current pain regimen. The patient now is requesting transfer to [facility]. 2. Anemia. Monitor H and H levels. 3. Asthma. Continue medical management. 4. Diabetes. Continue current insulin regimen. 5. Hypertension. Blood pressure control. Continue current blood pressure regimen. 6. History of cerebrovascular accident. Appreciate neurology's evaluation. Continue aspirin and Li pitor. No indication for Eliquis or Plavix at this time. 7. Urinary tract infection. The patient has completed an antibiotic course. 8. Questionable shingles. The patient is completing course of Valtrex. 9. Coronary artery disease. No significant stenosis necessitating surgery. Continue to monitor. 10. GI and DVT prophylaxis. Dictated By: HENRRY PIEDRA DO NR/NTS Conf#: [id number] DID#: [id number] CC: RAQUEL DOWNING MD;*End*
[2019-04-19 14:13] VITALS: BP 108/55; PULSE 68; RESP 16
[2019-04-19 21:30] VITALS: BP 136/61; PULSE 64; RESP 18
[2019-04-19] MEDS: ATORVASTATIN 40 MG TAB PO SCH (21:51)
[2019-04-20] MEDS: ACCU-CHEK XX SCH (02:00)
[2019-04-20] MEDS: HYDROmorphONE 4 MG TAB PO PRN ×4 (02:03→14:57)
[2019-04-20 02:24] VITALS: BP 138/64; PULSE 64; RESP 18
[2019-04-20] MEDS: PREGABALIN 75 MG CAP PO SCH ×2 (06:28→14:31)
[2019-04-20 07:48] VITALS: BP 151/68; PULSE 79; RESP 18
[2019-04-20] MEDS: INSULIN ASPART [NOVOLOG] 3 ML PEN SC SCH ×3 (08:00→17:51)
[2019-04-20] MEDS: NYSTATIN 30 GM POWDER BTL TOP SCH (08:21)
[2019-04-20] MEDS: FLUTICASONE/VILANTEROL 100-25 INH SCH (08:22)
[2019-04-20] MEDS: ALBUTEROL HFA 8 GM INHALER INH SCH ×2 (08:22→12:56)
[2019-04-20] MEDS: LOSARTAN 50 MG TAB PO SCH (08:23)
[2019-04-20] MEDS: metFORMIN 500 MG TAB PO SCH ×2 (08:24→17:51)
[2019-04-20] MEDS: FUROSEMIDE 20 MG TAB PO SCH (08:24)
[2019-04-20] MEDS: PANTOPRAZOLE (EC) 40 MG TAB PO SCH (08:24)
[2019-04-20] MEDS: BACLOFEN 10 MG TAB PO SCH ×2 (08:24→12:55)
[2019-04-20] MEDS: SOLIFENACIN 5 MG TAB PO SCH (08:24)
[2019-04-20] MEDS: DOCUSATE SODIUM 100 MG CAP PO SCH (08:25)
[2019-04-20] MEDS: SPIRONOLACTONE 25 MG TAB PO SCH (08:25)
[2019-04-20] MEDS: LINAGLIPTIN 5 MG TABLET PO SCH (08:25)
[2019-04-20] MEDS: PAROXETINE (CR) 12.5 MG TAB PO SCH (08:25)
[2019-04-20] MEDS: LABETALOL 200 MG TAB PO SCH ×2 (08:25→12:55)
[2019-04-20] MEDS: ASPIRIN 81 MG TAB PO SCH (08:25)
[2019-04-20] MEDS: POLYETHYLENE GLYCOL 17 GM PACKET PO SCH (08:25)
[2019-04-20] MEDS: NIFEdipine (XL) 30 MG TAB PO SCH (08:25)
[2019-04-20] MEDS: valACYclovir 500 MG TAB PO SCH ×2 (08:26→12:55)
[2019-04-20] MEDS: glipiZIDE (XL) 5 MG TAB PO SCH (08:26)
[2019-04-20] MEDS: ENOXAPARIN 40 MG/0.4 ML SYG SC SCH (08:32)
[2019-04-20] MEDS ORDERED: CLOPIDOGREL 75 MG TAB PO SCH (09:00)
[2019-04-20 14:10] VITALS: BP 106/52; PULSE 68; RESP 18
--- NOTE | 2019-04-21 02:30 | DS ---
DATE OF ADMISSION: 04/08/2019 DATE OF DISCHARGE: 04/20/2019 HOSPITAL COURSE: This is a 59-year-old female with a past medical history of CVA, history of chronic pain syndrome, history of right iliotibial band syndrome, history of chronic neuropathy, history of diabetes, obstructive sleep apnea, depression, coronary artery disease, asthma, hypertension, c hronic headaches, who presented to [facility] after having a mechanical fall. The patient as a result, had severe pain, was brought into the emergency room and admitted to med/surg. The patient during the hospital course the pain medications was adjusted, which improved and controll ed her pain. The patient had acute exacerbation of her iliotibial band syndrome. The patient also s een by neurologist, Dr. Higuera given her history of CVA. The patient was recommended to continue aspi rin and Lipitor. A neurologic workup included a Doppler ultrasound, which showed some stenosis of th e carotid arteries. The patient was seen by vascular surgery, who recommended no intervention, but m edical management with Plavix. The patient's other medical problems included diabetes, hypertension, asthma have been stable. The patient did have a UTI, which was treated with a Macrobid. The patien t had a questionable possibility of shingles and this was empirically treated with Valtrex. The [facility] ent currently at this time is pending transfer to [facility] for acute rehabilitation. The [facility] ent was not able to be accepted to [facility] acute rehab. At the time of discharge, the patient is stable, in no acute distress. FINAL DIAGNOSES: 1. Status post fall with iliotibial band syndrome. 2. Chronic pain syndrome. 3. Anemia. 4. Asthma. 5. Diabetes. 6. Hypertension. 7. History of cerebrovascular accident. 8. Status post urinary tract infection. 9. Questionable shingles. The patient is completing course. 10. Peripheral vascular disease. 11. Coronary artery disease. 12. Gastrointestinal and deep venous thrombosis prophylaxis. FINAL MEDICATIONS: Please see reconciliation list. At the time of discharge, the patient is stable, in no acute distress. Please note I spent over 40 minutes of time preparing the patient's discharge. Dictated By: HENRRY MCFARLAND/[place] Conf#: [id number] DID#: [id number] CC: RAQUEL DOWNING MD;*End*
[2019-04-21] MEDS ORDERED: LIDOCAINE 5% PATCH TD SCH (09:00)
== END 2019-04-20 17:50 | DRG 557 ==
LOC: E/R 03:59 → 2NE 05:32
PROVIDERS: ADMIT Internal Medicine; ATTEND Internal Medicine
DX: M76.30 Iliotibial band syndrome, unspecified leg (principal); G92 Toxic encephalopathy; I69.354 Hemiplegia and hemiparesis following cerebral infarction affecting left non-dominant side; N39.0 Urinary tract infection, site not specified; Z68.42 Body mass index [BMI] 45.0-49.9, adult; R47.01 Aphasia; E78.5 Hyperlipidemia, unspecified; I25.10 Atherosclerotic heart disease of native coronary artery without angina pectoris; I25.2 Old myocardial infarction; I10 Essential (primary) hypertension; G47.33 Obstructive sleep apnea (adult) (pediatric); D64.9 Anemia, unspecified; Z91.81 History of falling; J45.909 Unspecified asthma, uncomplicated; T14.8XXA Other injury of unspecified body region, initial encounter; X58.XXXA Exposure to other specified factors, initial encounter; B96.1 Klebsiella pneumoniae [K. pneumoniae] as the cause of diseases classified elsewhere; E66.01 Morbid (severe) obesity due to excess calories; G89.4 Chronic pain syndrome; B02.9 Zoster without complications; E11.51 Type 2 diabetes mellitus with diabetic peripheral angiopathy without gangrene; E11.40 Type 2 diabetes mellitus with diabetic neuropathy, unspecified
CPT/HCPCS: 36415; 70450; 70498; 71045; 72170; 73520; 80048; 80053; 80061; 81001; 81003; 82962; 83036; 83540; 83735; 84100; 84443; 84484; 85025; 85651; 86140; 87086; 93005; 93306; 93880; 94660; 96372; 97110; 97116; 97161; 97165; 97530; 97535; J1170; J1650; J1815; J1885; J1940; J7040; Q9967